=== PATIENT | male | born 1950 | race Caucasian/White ===

== ENCOUNTER → 2017-08-22 | Outpatient (CLI) | payer MEDICARE ==
[~2017-08-22] MED LIST: CHOL40003 PO; CLOP75TA14 PO; DOXA4TAB3 PO; EVOL140P SQ; ISOS60TA4 PO; LISI-617 PO; LISI2.5T2 PO; METF500T6 PO; METO-409 PO; PANT40TA25 PO; RANI300C PO; UBID50TA3 PO
== END | disposition home or self-care (01) ==
LOC: OIH 09:45
PROVIDERS: ATTEND Family Medicine
DX: M19.011 Primary osteoarthritis, right shoulder (principal); G89.29 Other chronic pain
CPT/HCPCS: 73030

== ENCOUNTER 2017-10-31 16:27 | Inpatient (IN) | payer MEDICARE ==
[~2017-10-31] VITALS: Ht 185.4 cm; Wt 111.5 kg
[~2017-10-31 16:27] MED LIST changes: -LISI2.5T2 PO
[2017-10-31 17:01] VITALS: BP 138/85
[2017-10-31] MEDS ORDERED: PHARMACY COMMUNICATION MISC SCH ×2 (17:30)
[2017-10-31] MEDS ORDERED: NITROGLYCERIN 50 MG/D5% WATER 250 BOT IV PRN (17:30)
[2017-10-31 17:45] LABS: HEMATOCRIT 42.5 % (42-54); MEAN CORPUSCULAR HEMOGLOBIN 30.8 pg (27.0-33.0); MEAN CORPUSCULAR HGB CONC 33.9 g/dL (32.0-36.0); MEAN CORPUSCULAR VOLUME 91.1 fL (79-99); PLATELET COUNT (AUTO) 205 K/uL (130-400); RED BLOOD CELL COUNT(AUTO) 4.67 MIL/uL (4.50-6.20); RED CELL DISTRIBUTION WIDTH 15.8 % (11.0-15.5); WHITE BLOOD COUNT (AUTO) 8.7 K/uL (4.8-10.8)
[2017-10-31 18:00] LABS: INR 0.96 (0.85-1.15); PARTIAL THROMBOPLASTIN TIME 24.6 SEC (26.3-35.5); PROTHROMBIN TIME 10.1 SEC (9.6-11.6)
[2017-10-31 18:11] LABS: ALANINE AMINOTRANSFERASE 31 U/L (12-78); ALBUMIN 3.2 g/dL (3.5-5.0); ASPARTATE AMINOTRANSFERASE 22 U/L (10-37); BILIRUBIN,TOTAL 0.4 mg/dL (0.2-1.0); CARBON DIOXIDE 30 mmol/L (21-32); CHLORIDE 104 mmol/L (101-111); CREATINE KINASE MB 1.9 ng/mL (0.5-3.6); CREATINE KINASE, TOTAL 81 U/L (21-232); GLOMERULAR FILTR. RATE CALC 79 mL/min (>60); GLUCOSE,RANDOM 131 mg/dL (70-105); MYOGLOBIN 73 ng/mL (10-92); POTASSIUM 4.3 mmol/L (3.5-5.1); SODIUM SERUM 138 mmol/L (136-145); TOTAL PROTEIN, SERUM 6.2 g/dL (6.0-8.3); TROPONIN I < 0.04 ng/mL (0.00-0.06); UREA NITROGEN, BLOOD 18 mg/dL (7-18)
[2017-10-31] MEDS ORDERED: LISI2.5T2 PO (18:22)
[2017-10-31 19:32] VITALS: BP 145/78
[2017-10-31] MEDS ORDERED: RANITIDINE 300MG PO SCH (21:00)
[2017-11-01] VITALS (9 sets, daily range): BP systolic 136–180; BP diastolic 74–95
[2017-11-01] MEDS ORDERED: HYDRALAZINE HCL 20 MG/ML VIAL ONE (00:37)
[2017-11-01] MEDS ORDERED: ACETAMINOPHEN 325 MG TAB PO PRN (00:45)
[2017-11-01] MEDS ORDERED: LACTULOSE 20 GM/30 ML UDCUP PO PRN (00:45)
[2017-11-01] MEDS ORDERED: DEXTROSE 50%-WATER 50 ML DISP.SYRIN IV PRN ×2 (00:45→08:30)
[2017-11-01] MEDS ORDERED: HYDRALAZINE HCL 20 MG/ML VIAL IV PRN (00:45)
[2017-11-01] MEDS ORDERED: LIDOCAINE HCL-MPF 1% 2ML VIAL IVP PRN (00:45)
[2017-11-01] MEDS ORDERED: GLUCAGON 1MG KIT 1 MG ML IM PRN ×2 (00:45→08:30)
[2017-11-01] MEDS ORDERED: POTASSIUM CHLORIDE 10% ELIXIR 20 MEQ/15 ML UDCUP PO PRN (00:45)
[2017-11-01] MEDS ORDERED: POTASSIUM CHLORIDE 20 MEQ ERTAB PO PRN (00:45)
[2017-11-01] MEDS ORDERED: POTASSIUM CHLORIDE 20MEQ/100ML 100 ML IV PRN (00:45)
[2017-11-01 03:26] LABS: HEMATOCRIT 43.8 % (42-54); MEAN CORPUSCULAR HEMOGLOBIN 31.4 pg (27.0-33.0); MEAN CORPUSCULAR HGB CONC 34.7 g/dL (32.0-36.0); MEAN CORPUSCULAR VOLUME 90.4 fL (79-99); PLATELET COUNT (AUTO) 204 K/uL (130-400); RED BLOOD CELL COUNT(AUTO) 4.84 MIL/uL (4.50-6.20); RED CELL DISTRIBUTION WIDTH 15.9 % (11.0-15.5); WHITE BLOOD COUNT (AUTO) 7.4 K/uL (4.8-10.8)
[2017-11-01 03:52] LABS: CARBON DIOXIDE 30 mmol/L (21-32); CHLORIDE 106 mmol/L (101-111); CREATINE KINASE MB 1.7 ng/mL (0.5-3.6); CREATINE KINASE, TOTAL 67 U/L (21-232); GLOMERULAR FILTR. RATE CALC 79 mL/min (>60); GLUCOSE,RANDOM 114 mg/dL (70-105); MYOGLOBIN 66 ng/mL (10-92); POTASSIUM 4.3 mmol/L (3.5-5.1); SODIUM SERUM 140 mmol/L (136-145); TROPONIN I < 0.04 ng/mL (0.00-0.06); UREA NITROGEN, BLOOD 12 mg/dL (7-18)
[2017-11-01] MEDS ORDERED: ISOVUE-370 50ML VIAL IV ONE (07:13)
[2017-11-01] MEDS ORDERED: HEPARIN SODIUM 1000UNIT/ML 10ML VIAL ONE (07:13)
[2017-11-01] MEDS ORDERED: NITROGLYCERIN 5 MG/ML 10 ML VIAL IV ONE (07:13)
[2017-11-01] MEDS ORDERED: LIDOCAINE HCL 2% 20ML ONE (07:14)
[2017-11-01] MEDS ORDERED: BIVALIRUDIN 250 MG/VIAL IV ONE (07:17)
[2017-11-01] MEDS ORDERED: IOPAMIDOL-370 100 ML VIAL IV ONE (07:17)
[2017-11-01] MEDS: INSULIN HUMULIN R 100 UNIT/ML 3ML SQ SCH ×2 (07:30→11:30)
[2017-11-01] MEDS ORDERED: MORPHINE SULFATE 4 MG/1ML SYG ONE ×2 (07:58→08:19)
[2017-11-01] MEDS ORDERED: LABETALOL HCL 5 MG/ML 20ML VIAL IV ONE (08:18)
[2017-11-01] MEDS ORDERED: SODIUM CHLORIDE 0.9% 1000ML 1,000 ML IV SCH (08:29)
[2017-11-01] MEDS ORDERED: FAMOTIDINE 20MG TAB 20 MG TAB PO SCH ×2 (09:00)
[2017-11-01] MEDS ORDERED: DOXAZOSIN MESYLATE 2 MG TABLET PO SCH (09:00)
[2017-11-01] MEDS ORDERED: METOPROLOL TARTRATE 50 MG TAB PO SCH (09:00)
[2017-11-01] MEDS ORDERED: LISINOPRIL 5 MG TABLET PO SCH (09:00)
[2017-11-01] MEDS ORDERED: METOPROLOL 100 MG PO SCH (09:00)
[2017-11-01] MEDS ORDERED: CLOPIDOGREL BISULFATE 75 MG TAB PO SCH (09:00)
[2017-11-01] MEDS ORDERED: PHARMACY COMMUNICATION MISC SCH (10:30)
== END 2017-11-01 14:20 | disposition short-term general hospital (02) | DRG 287 ==
LOC: EDH 16:27 → EDHIP 16:57 → 2AH 16:59
PROVIDERS: ADMIT Family Medicine; ATTEND Family Medicine
PROC: 4A023N7 Measurement of Cardiac Sampling and Pressure, Left Heart, Percutaneous Approach (ICD-10-PCS; principal; 2017-11-01)
PROC: B2111ZZ Fluoroscopy of Multiple Coronary Arteries using Low Osmolar Contrast (ICD-10-PCS; 2017-11-01)
PROC: B2151ZZ Fluoroscopy of Left Heart using Low Osmolar Contrast (ICD-10-PCS; 2017-11-01)
PROC: B2181ZZ Fluoroscopy of Left Internal Mammary Bypass Graft using Low Osmolar Contrast (ICD-10-PCS; 2017-11-01)
PROC: B4181ZZ Fluoroscopy of Bilateral Renal Arteries using Low Osmolar Contrast (ICD-10-PCS; 2017-11-01)
DX: T82.855A Stenosis of coronary artery stent, initial encounter (principal); T82.858A Stenosis of other vascular prosthetic devices, implants and grafts, initial encounter; I48.91 Unspecified atrial fibrillation; I25.110 Atherosclerotic heart disease of native coronary artery with unstable angina pectoris; I10 Essential (primary) hypertension; E11.9 Type 2 diabetes mellitus without complications; K21.9 Gastro-esophageal reflux disease without esophagitis; Y83.8 Other surgical procedures as the cause of abnormal reaction of the patient, or of later complication, without mention of misadventure at the time of the procedure; G47.33 Obstructive sleep apnea (adult) (pediatric); I25.2 Old myocardial infarction; Z95.5 Presence of coronary angioplasty implant and graft; Z88.8 Allergy status to other drugs, medicaments and biological substances; Z86.711 Personal history of pulmonary embolism; Y92.89 Other specified places as the place of occurrence of the external cause
CPT/HCPCS: 36252; 36415; 71045; 80048; 80053; 82550; 82553; 83874; 84484; 85027; 85610; 85730; 93005; 93459; C1760; C1894; J0360; J0583; J1644; J2270; J3490; J7030; Q9967

== ENCOUNTER 2017-12-28 11:25 | Emergency (ER) | payer MEDICARE ==
[~2017-12-28 11:25] MED LIST changes: -ISOS60TA4 PO; -LISI-617 PO; +LISI2.5T2 PO; -PANT40TA25 PO
[2017-12-28 11:57] LABS: BASOPHILS % (AUTO) 0.5 % (0.0-5.0); EOSINOPHILS % (AUTO) 1.4 % (0.0-8.0); HEMATOCRIT 45.6 % (42-54); LYMPHOCYTES % (AUTO) 17.8 % (21.0-51.0); MEAN CORPUSCULAR HEMOGLOBIN 31.3 pg (27.0-33.0); MEAN CORPUSCULAR VOLUME 92.2 fL (79-99); MONOCYTES % (AUTO) 9.2 % (3.0-13.0); NEUTROPHILS % (AUTO) 71.1 % (40.0-77.0); PLATELET COUNT (AUTO) 218 K/uL (130-400); RED BLOOD CELL COUNT(AUTO) 4.94 MIL/uL (4.50-6.20); RED CELL DISTRIBUTION WIDTH 14.5 % (11.0-15.5); WHITE BLOOD COUNT (AUTO) 7.2 K/uL (4.8-10.8)
[2017-12-28 12:08] LABS: POTASSIUM 4.2 mmol/L (3.5-5.1)
[2017-12-28 12:10] LABS: INR 0.97 (0.85-1.15); PARTIAL THROMBOPLASTIN TIME 23.3 SEC (26.3-35.5); PROTHROMBIN TIME 10.2 SEC (9.6-11.6)
[2017-12-28 12:22] LABS: ALBUMIN 3.7 g/dL (3.5-5.0); BILIRUBIN,TOTAL 0.7 mg/dL (0.2-1.0); CREATINE KINASE MB 1.5 ng/mL (0.5-3.6); TOTAL PROTEIN, SERUM 6.9 g/dL (6.0-8.3)
== END 2017-12-28 16:13 | disposition home or self-care (01) ==
LOC: EDH 11:25
DX: R42 Dizziness and giddiness (principal); R94.31 Abnormal electrocardiogram [ECG] [EKG]; E11.9 Type 2 diabetes mellitus without complications; I10 Essential (primary) hypertension; I25.10 Atherosclerotic heart disease of native coronary artery without angina pectoris; I25.2 Old myocardial infarction; R79.1 Abnormal coagulation profile; Z86.711 Personal history of pulmonary embolism; Z98.890 Other specified postprocedural states; Z79.82 Long term (current) use of aspirin; Z79.84 Long term (current) use of oral hypoglycemic drugs; Z79.899 Other long term (current) drug therapy; Z88.8 Allergy status to other drugs, medicaments and biological substances
CPT/HCPCS: 36415; 71045; 80053; 82550; 82553; 83874; 84484; 85025; 85610; 85730; 93005; 94761

== ENCOUNTER 2018-03-18 07:27 | Day surgery (SDC) | payer MEDICARE ==
[~2018-03-18] VITALS: Ht 185.4 cm; Wt 110.0 kg
[~2018-03-18 07:27] MED LIST changes: +AEC81 PO; +FINA5TAB41 PO; +HYDR12.530 PO; +METF-444 PO; -METF500T6 PO; -METO-409 PO; +METO50TA18 PO; +SODIUM CHLORIDE 0.9% 1000ML 1,000 ML IV ONE
[2018-03-18 08:14] VITALS: BP 113/59
[2018-03-18] MEDS ORDERED: PROPOFOL 10 MG/ML 20ML VIAL IV ONE (09:33)
[2018-03-18 09:44] VITALS: BP 96/46
[2018-03-18 09:48] VITALS: BP 97/46
[2018-03-18 09:53] VITALS: BP 116/62
[2018-03-18 09:57] VITALS: BP 110/72
== END 2018-03-18 11:02 | disposition home or self-care (01) ==
LOC: DAH 07:27 → ENDO 07:27
PROVIDERS: ATTEND Internal Medicine Gastroenterology
DX: K29.50 Unspecified chronic gastritis without bleeding (principal); K21.9 Gastro-esophageal reflux disease without esophagitis; K31.89 Other diseases of stomach and duodenum; E11.9 Type 2 diabetes mellitus without complications; I25.10 Atherosclerotic heart disease of native coronary artery without angina pectoris; E78.5 Hyperlipidemia, unspecified; K64.9 Unspecified hemorrhoids; I11.0 Hypertensive heart disease with heart failure; I50.9 Heart failure, unspecified; I25.2 Old myocardial infarction; Z95.5 Presence of coronary angioplasty implant and graft; Z79.82 Long term (current) use of aspirin; Z79.899 Other long term (current) drug therapy; Z88.8 Allergy status to other drugs, medicaments and biological substances; Z95.1 Presence of aortocoronary bypass graft
CPT/HCPCS: 43239; 82948; 88305; 88342; 93005; A4606; J2704; J7030

== ENCOUNTER → 2018-05-19 | Outpatient (CLI) | payer MEDICARE ==
[~2018-05-19] VITALS: Ht 182.9 cm; Wt 108.9 kg
[~2018-05-19] MED LIST changes: +NITR0.4T50 SL; +PANT40TA25 PO; +REGADENOSON 0.4 MG/5 ML PF SYG IVP SCH; -SODIUM CHLORIDE 0.9% 1000ML 1,000 ML IV ONE
== END | disposition home or self-care (01) ==
LOC: SHCH 09:15
PROVIDERS: ATTEND Internal Medicine Cardiovascular Disease
DX: I25.709 Atherosclerosis of coronary artery bypass graft(s), unspecified, with unspecified angina pectoris (principal); I25.2 Old myocardial infarction
CPT/HCPCS: 78452; 93017; 96374; A9505; J2785

== ENCOUNTER 2018-05-21 12:47 | Inpatient (IN) | payer MEDICARE ==
[~2018-05-21] VITALS: Ht 147.3 cm; Wt 47.8 kg
[~2018-05-21 12:47] MED LIST changes: -NITR0.4T50 SL; -PANT40TA25 PO; -REGADENOSON 0.4 MG/5 ML PF SYG IVP SCH
[2018-05-21] MEDS ORDERED: GLUCAGON 1MG KIT 1 MG ML IM PRN (13:15)
[2018-05-21] MEDS ORDERED: POTASSIUM CHLORIDE 20 MEQ ERTAB PO PRN (13:15)
[2018-05-21] MEDS ORDERED: POTASSIUM CHLORIDE 20MEQ/100ML 100 ML IV PRN (13:15)
[2018-05-21] MEDS ORDERED: POTASSIUM CHLORIDE 10% ELIXIR 20 MEQ/15 ML UDCUP PO PRN (13:15)
[2018-05-21] MEDS ORDERED: SODIUM CHLORIDE 0.9% 10 ML VIAL IVP PRN (13:15)
[2018-05-21] MEDS ORDERED: DEXTROSE 50%-WATER 50 ML DISP.SYRIN IV PRN (13:15)
[2018-05-21] MEDS ORDERED: LIDOCAINE HCL-MPF 1% 2ML VIAL IJ PRN (13:15)
[2018-05-21 13:25] VITALS: BP 124/68
[2018-05-21 14:08] LABS: ALBUMIN 3.3 g/dL (3.5-5.0); BILIRUBIN,TOTAL 0.6 mg/dL (0.2-1.0); CREATININE 1.1 mg/dL (0.5-1.5); POTASSIUM 4.5 mmol/L (3.5-5.1); TOTAL PROTEIN, SERUM 6.4 g/dL (6.0-8.3)
[2018-05-21 14:23] LABS: INR 0.97 (0.85-1.15); PARTIAL THROMBOPLASTIN TIME 25.7 SEC (26.3-35.5); PROTHROMBIN TIME 10.2 SEC (9.6-11.6)
[2018-05-21 14:30] LABS: EOSINOPHILS % (MANUAL) 5 % (1-6); LYMPHOCYTES % (MANUAL) 17 % (22-44); MAN.DIFF COMMENT-IMPRESSION MANUAL DIFFERENTIAL; MONOCYTES % (MANUAL) 5 % (2-9); PLATELET MORPHOLOGY COMMENT ADEQUATE; REACTIVE LYMPHOCYTES 3 % (0-0); SEGMENTED NEUTROPHILS % 70 % (40-70)
[2018-05-21 14:31] LABS: HEMATOCRIT 43.9 % (42-54); MEAN CORPUSCULAR HGB CONC 32.9 g/dL (32.0-36.0); NUCLEATED RED BLOOD CELLS 0.1 % (0.0-0.19); PLATELET COUNT (AUTO) 179 K/uL (130-400); RED BLOOD CELL COUNT(AUTO) 4.83 MIL/uL (4.50-6.20); RED CELL DISTRIBUTION WIDTH 13.7 % (11.0-15.5); WHITE BLOOD COUNT (AUTO) 7.1 K/uL (4.8-10.8)
[2018-05-21] MEDS ORDERED: NITROGLYCERIN 50 MG/D5% WATER 1 BOT IV PRN (15:00)
[2018-05-21] MEDS ORDERED: NITR0.4T50 SL (15:25)
[2018-05-21] MEDS ORDERED: PANT40TA25 PO (15:25)
[2018-05-21 16:03] VITALS: BP 133/77
[2018-05-21] MEDS: INSULIN R PO SS1 SQ SCH ×3 (16:30→20:40)
[2018-05-21 17:54] LABS: APPEARANCE,URINE Clear (CLEAR); BILIRUBIN,URINE Negative (NEGATIVE); COLOR,URINE Yellow (YELLOW); GLUCOSE, URINE (UA) Negative (NEGATIVE); KETONES,URINE Negative (NEGATIVE); LEUKOCYTE ESTERASE ,URINE Negative (NEGATIVE); NITRATE,URINE Negative (NEGATIVE); OCCULT BLOOD,URINE Negative (NEGATIVE); PH,URINE 5.5 (5.0-8.0); PROTEIN,URINE Negative (NEGATIVE); UROBILINOGEN,URINE 0.2 mg/dL (0.2-1.0)
[2018-05-21] MEDS ORDERED: ACETAMINOPHEN 325 MG TAB ONE (19:08)
[2018-05-21] MEDS: ACETAMINOPHEN 325 MG TAB PO PRN (19:10)
[2018-05-21 19:59] VITALS: BP 136/86
[2018-05-21] MEDS: METOPROLOL TARTRATE 50 MG TAB PO SCH ×2 (20:49→20:54)
[2018-05-22] VITALS (13 sets, daily range): BP systolic 91–155; BP diastolic 22–89
[2018-05-22] MEDS ORDERED: LIDOCAINE HCL 2% 20ML ONE (07:14)
[2018-05-22] MEDS ORDERED: IOHEXOL-350 50ML VIAL IV ONE (07:14)
[2018-05-22] MEDS ORDERED: NITROGLYCERIN 5 MG/ML 10 ML VIAL IV ONE (07:14)
[2018-05-22] MEDS ORDERED: IOHEXOL 350 MG/ML 100ML INFUS..BTL IV ONE (07:14)
[2018-05-22] MEDS ORDERED: BIVALIRUDIN 250 MG/VIAL IV ONE (07:21)
[2018-05-22] MEDS ORDERED: MIDAZOLAM HCL 1 MG/ML 2ML VIAL ONE (07:44)
[2018-05-22] MEDS ORDERED: FENTANYL CITRATE PF 50 MCG/1 ML 2ML VIAL ONE (07:44)
[2018-05-22] MEDS ORDERED: SODIUM CHLORIDE 0.9% 1000ML 1,000 ML IV SCH (08:17)
[2018-05-22] MEDS ORDERED: NITROGLYCERIN 50 MG/D5% WATER 250 BOT IV SCH (08:17)
[2018-05-22] MEDS ORDERED: DEXTROSE 50%-WATER 50 ML DISP.SYRIN IV PRN (08:30)
[2018-05-22] MEDS ORDERED: GLUCAGON 1MG KIT 1 MG ML IM PRN (08:30)
[2018-05-22] MEDS ORDERED: COENZYME Q10 PO SCH (09:00)
[2018-05-22] MEDS ORDERED: REPATHA 140 MG SQ SCH (09:00)
[2018-05-22] MEDS: CO Q PO SCH (09:00)
[2018-05-22] MEDS ORDERED: ONDANSETRON HCL 4 MG/2 ML VIAL IVP PRN (11:00)
[2018-05-22] MEDS: CLOPIDOGREL BISULFATE 75 MG TAB PO SCH (11:02)
[2018-05-22] MEDS: ASPIRIN 81MG TAB.CHEW PO SCH (11:02)
[2018-05-22] MEDS: LISINOPRIL 10 MG TABLET PO SCH (11:02)
[2018-05-22] MEDS: PANTOPRAZOLE SODIUM 40 MG TABLET.DR PO SCH (11:03)
[2018-05-22] MEDS: METOPROLOL TARTRATE 50 MG TAB PO SCH ×2 (11:03→20:35)
[2018-05-22] MEDS: DOXAZOSIN MESYLATE 2 MG TABLET PO SCH (11:03)
[2018-05-22] MEDS: ACETAMINOPHEN 325 MG TAB PO PRN (11:05)
[2018-05-22] MEDS: INSULIN R PO SS1 SQ SCH ×3 (11:30→20:28)
[2018-05-23] VITALS (14 sets, daily range): BP systolic 118–157; BP diastolic 67–88
[2018-05-23] MEDS: ACETAMINOPHEN 325 MG TAB PO PRN ×2 (03:03→12:56)
[2018-05-23 04:02] LABS: HEMATOCRIT 41.6 % (42-54); MEAN CORPUSCULAR HEMOGLOBIN 29.7 pg (27.0-33.0); MEAN CORPUSCULAR HGB CONC 32.4 g/dL (32.0-36.0); MEAN CORPUSCULAR VOLUME 91.5 fL (79-99); NUCLEATED RED BLOOD CELLS 0.1 % (0.0-0.19); PLATELET COUNT (AUTO) 170 K/uL (130-400); RED BLOOD CELL COUNT(AUTO) 4.54 MIL/uL (4.50-6.20); RED CELL DISTRIBUTION WIDTH 13.8 % (11.0-15.5); WHITE BLOOD COUNT (AUTO) 8.6 K/uL (4.8-10.8)
[2018-05-23 04:06] LABS: POTASSIUM 4.1 mmol/L (3.5-5.1)
[2018-05-23] MEDS: CO Q PO SCH (09:00)
[2018-05-23] MEDS: CLOPIDOGREL BISULFATE 75 MG TAB PO SCH (09:02)
[2018-05-23] MEDS: METOPROLOL TARTRATE 50 MG TAB PO SCH ×2 (09:03→20:53)
[2018-05-23] MEDS: LISINOPRIL 10 MG TABLET PO SCH (09:03)
[2018-05-23] MEDS: ASPIRIN 81MG TAB.CHEW PO SCH (09:03)
[2018-05-23] MEDS: DOXAZOSIN MESYLATE 2 MG TABLET PO SCH (09:03)
[2018-05-23] MEDS: PANTOPRAZOLE SODIUM 40 MG TABLET.DR PO SCH (09:03)
[2018-05-23] MEDS: INSULIN R PO SS1 SQ SCH ×2 (11:30→21:00)
[2018-05-23] MEDS ORDERED: BIVALIRUDIN 250 MG/VIAL IV ONE (16:38)
[2018-05-23] MEDS ORDERED: NITROGLYCERIN 5 MG/ML 10 ML VIAL IV ONE (16:38)
[2018-05-23] MEDS ORDERED: LIDOCAINE HCL 2% 20ML ONE ×2 (16:38→17:06)
[2018-05-23] MEDS ORDERED: IOHEXOL 350 MG/ML 100ML INFUS..BTL IV ONE (16:38)
[2018-05-23] MEDS ORDERED: FENTANYL CITRATE PF 50 MCG/1 ML 2ML VIAL ONE (16:58)
[2018-05-23] MEDS ORDERED: MIDAZOLAM HCL 1 MG/ML 2ML VIAL ONE (16:58)
[2018-05-23] MEDS ORDERED: CLOPIDOGREL BISULFATE 300 MG TAB ONE (17:33)
[2018-05-23] MEDS ORDERED: NITROGLYCERIN 50 MG/D5% WATER 1 BOT IV PRN (17:45)
[2018-05-23] MEDS: SODIUM CHLORIDE 0.9% 1000ML 1,000 ML IV SCH ×3 (17:45→20:52)
[2018-05-24 03:25] VITALS: BP_SYST 144; BP_SYST 146; BP_DIAS 76; BP_DIAS 87
[2018-05-24 04:20] LABS: POTASSIUM 4.3 mmol/L (3.5-5.1)
[2018-05-24 04:26] LABS: MEAN CORPUSCULAR HGB CONC 33.5 g/dL (32.0-36.0); MEAN CORPUSCULAR VOLUME 92.4 fL (79-99); NUCLEATED RED BLOOD CELLS 0.1 % (0.0-0.19); PLATELET COUNT (AUTO) 184 K/uL (130-400); RED BLOOD CELL COUNT(AUTO) 4.54 MIL/uL (4.50-6.20); RED CELL DISTRIBUTION WIDTH 13.8 % (11.0-15.5); WHITE BLOOD COUNT (AUTO) 7.5 K/uL (4.8-10.8)
[2018-05-24] MEDS: INSULIN R PO SS1 SQ SCH ×2 (06:01→11:30)
[2018-05-24] MEDS: PANTOPRAZOLE SODIUM 40 MG TABLET.DR PO SCH (06:03)
[2018-05-24 07:39] VITALS: BP 140/89
[2018-05-24] MEDS: METOPROLOL TARTRATE 50 MG TAB PO SCH (08:43)
[2018-05-24] MEDS: CO Q PO SCH (08:44)
[2018-05-24] MEDS: LISINOPRIL 10 MG TABLET PO SCH (08:44)
[2018-05-24] MEDS: DOXAZOSIN MESYLATE 2 MG TABLET PO SCH (08:44)
[2018-05-24] MEDS ORDERED: ASPIRIN 81MG TAB.CHEW PO SCH (09:00)
[2018-05-24] MEDS ORDERED: CLOPIDOGREL BISULFATE 75 MG TAB PO SCH (09:00)
[2018-05-24 11:40] VITALS: BP 138/80
[2018-05-24 14:45] VITALS: BP 137/83
== END 2018-05-24 12:55 | disposition home or self-care (01) | DRG 246 ==
LOC: EDH 12:47 → 2DH 12:48
PROVIDERS: ADMIT Internal Medicine; ATTEND Internal Medicine
PROC: 4A023N7 Measurement of Cardiac Sampling and Pressure, Left Heart, Percutaneous Approach (ICD-10-PCS; principal; 2018-05-22)
PROC: 027034Z Dilation of Coronary Artery, One Artery with Drug-eluting Intraluminal Device, Percutaneous Approach (ICD-10-PCS; 2018-05-22)
PROC: B2151ZZ Fluoroscopy of Left Heart using Low Osmolar Contrast (ICD-10-PCS; 2018-05-22)
PROC: B2111ZZ Fluoroscopy of Multiple Coronary Arteries using Low Osmolar Contrast (ICD-10-PCS; 2018-05-22)
PROC: B41G1ZZ Fluoroscopy of Left Lower Extremity Arteries using Low Osmolar Contrast (ICD-10-PCS; 2018-05-22)
PROC: B41F1ZZ Fluoroscopy of Right Lower Extremity Arteries using Low Osmolar Contrast (ICD-10-PCS; 2018-05-22)
DX: T82.858A Stenosis of other vascular prosthetic devices, implants and grafts, initial encounter (principal); I50.31 Acute diastolic (congestive) heart failure; I25.110 Atherosclerotic heart disease of native coronary artery with unstable angina pectoris; I24.9 Acute ischemic heart disease, unspecified; E11.69 Type 2 diabetes mellitus with other specified complication; I48.91 Unspecified atrial fibrillation; E78.2 Mixed hyperlipidemia; I10 Essential (primary) hypertension; Z95.1 Presence of aortocoronary bypass graft; Z82.3 Family history of stroke; Z82.49 Family history of ischemic heart disease and other diseases of the circulatory system; Z83.3 Family history of diabetes mellitus; Z80.8 Family history of malignant neoplasm of other organs or systems; Z83.6 Family history of other diseases of the respiratory system
CPT/HCPCS: 36415; 71045; 78452; 80048; 80053; 80061; 81003; 83036; 85025; 85027; 85610; 85730; 93005; 93017; 93459; 96374; 99156; 99157; A9505; C1760; C1769; C1894; C9604; J0583; J1644; J2250; J2405; J2785; J3010; J3490; J7030; Q9967

== ENCOUNTER 2018-08-06 00:22 | Emergency (ER) | payer MEDICARE ==
[~2018-08-06 00:22] MED LIST changes: +CHOL40002 PO; -CHOL40003 PO; -HYDR12.530 PO; +NITR0.4T50 SL; +PANT40TA25 PO; -RANI300C PO
[2018-08-06] MEDS ORDERED: IPRATROPIUM/ALBUTEROL SULFATE 3 ML SOLUTION IH ONE (01:27)
[2018-08-06] MEDS ORDERED: DEXAMETHASONE SOD PHOSPHATE 10MG/ML 1ML VIAL ONE (01:28)
[2018-08-06] MEDS ORDERED: SODIUM CHLORIDE 0.9% 500ML 500 ML IV ONE (01:28)
[2018-08-06 01:45] LABS: POTASSIUM 4.4 mmol/L (3.5-5.1)
[2018-08-06 01:47] LABS: BASOPHILS % (AUTO) 0.4 % (0.0-5.0); EOSINOPHILS % (AUTO) 3.3 % (0.0-8.0); HEMATOCRIT 41.7 % (42-54); LYMPHOCYTES % (AUTO) 14.8 % (21.0-51.0); MEAN CORPUSCULAR HEMOGLOBIN 29.2 pg (27.0-33.0); MEAN CORPUSCULAR HGB CONC 33.4 g/dL (32.0-36.0); MEAN CORPUSCULAR VOLUME 87.3 fL (79-99); MONOCYTES % (AUTO) 8.9 % (3.0-13.0); NEUTROPHILS % (AUTO) 72.6 % (40.0-77.0); NUCLEATED RED BLOOD CELLS 0.1 % (0.0-0.19); PLATELET COUNT (AUTO) 199 K/uL (130-400); RED BLOOD CELL COUNT(AUTO) 4.78 MIL/uL (4.50-6.20); RED CELL DISTRIBUTION WIDTH 13.6 % (11.0-15.5); WHITE BLOOD COUNT (AUTO) 9.7 K/uL (4.8-10.8)
[2018-08-06 01:59] LABS: ALBUMIN 3.3 g/dL (3.5-5.0); BILIRUBIN,DIRECT 0.1 mg/dL (0.0-0.3); BILIRUBIN,TOTAL 0.5 mg/dL (0.2-1.0); TOTAL PROTEIN, SERUM 6.6 g/dL (6.0-8.3)
[2018-08-06 02:00] LABS: B-TYPE NATRIURETIC PEPTIDE 82 pg/mL (0-100)
== END 2018-08-06 04:23 | disposition home or self-care (01) ==
LOC: EDH 00:22
DX: J20.9 Acute bronchitis, unspecified (principal); I25.810 Atherosclerosis of coronary artery bypass graft(s) without angina pectoris; E11.9 Type 2 diabetes mellitus without complications; I10 Essential (primary) hypertension; I25.2 Old myocardial infarction; Z88.8 Allergy status to other drugs, medicaments and biological substances
CPT/HCPCS: 36415; 71045; 80048; 80076; 82550; 83880; 84484; 85025; 87804 ×2; 93005; 94640; 96374; 99284; J1100; J7040

== ENCOUNTER 2018-08-08 11:30 | Observation (INO) | payer MEDICARE ==
[~2018-08-08] VITALS: Ht 185.4 cm; Wt 112.9 kg
[2018-08-08] MEDS ORDERED: IPRATROPIUM/ALBUTEROL SULFATE 3 ML SOLUTION IH ONE ×3 (12:25→18:50)
[2018-08-08] MEDS ORDERED: ACETAMINOPHEN 325 MG TAB ONE (12:39)
[2018-08-08 12:41] LABS: BASOPHILS % (AUTO) 0.3 % (0.0-5.0); EOSINOPHILS % (AUTO) 3.2 % (0.0-8.0); HEMATOCRIT 44.2 % (42-54); LYMPHOCYTES % (AUTO) 9.2 % (21.0-51.0); MEAN CORPUSCULAR HEMOGLOBIN 29.2 pg (27.0-33.0); MEAN CORPUSCULAR HGB CONC 33.1 g/dL (32.0-36.0); MEAN CORPUSCULAR VOLUME 88.2 fL (79-99); NEUTROPHILS % (AUTO) 80.3 % (40.0-77.0); PLATELET COUNT (AUTO) 217 K/uL (130-400); RED BLOOD CELL COUNT(AUTO) 5.01 MIL/uL (4.50-6.20); RED CELL DISTRIBUTION WIDTH 13.8 % (11.0-15.5); WHITE BLOOD COUNT (AUTO) 13.8 K/uL (4.8-10.8)
[2018-08-08 12:55] LABS: CREATININE 1.1 mg/dL (0.5-1.5); POTASSIUM 4.6 mmol/L (3.5-5.1)
[2018-08-08 13:01] LABS: ALBUMIN 3.5 g/dL (3.5-5.0); BILIRUBIN,TOTAL 1.1 mg/dL (0.2-1.0); TOTAL PROTEIN, SERUM 6.9 g/dL (6.0-8.3)
[2018-08-08] MEDS ORDERED: SODIUM CHLORIDE 0.9% 1000ML 1,000 ML IV ONE (15:10)
[2018-08-08] MEDS ORDERED: LEVOFLOXACIN 750 MG/D5W 150 ML 150 ML ONE (15:11)
[2018-08-08] MEDS ORDERED: CEFTRIAXONE SODIUM 1 GM ONE (16:12)
[2018-08-08] MEDS ORDERED: BENZONATATE 100 MG CAPSULE PO PRN (17:00)
[2018-08-08] MEDS: LEVOFLOXACIN 750 MG/D5W 150 ML 150 ML IV SCH (17:00)
[2018-08-08] MEDS: IPRATROPIUM/ALBUTEROL SULFATE 3 ML SOLUTION IH SCH (18:47)
[2018-08-08 21:06] LABS: APPEARANCE,URINE Clear (CLEAR); BILIRUBIN,URINE Negative (NEGATIVE); COLOR,URINE Yellow (YELLOW); GLUCOSE, URINE (UA) Negative (NEGATIVE); KETONES,URINE Negative (NEGATIVE); LEUKOCYTE ESTERASE ,URINE Negative (NEGATIVE); NITRATE,URINE Negative (NEGATIVE); OCCULT BLOOD,URINE Negative (NEGATIVE); PH,URINE 6.5 (5.0-8.0); PROTEIN,URINE Negative (NEGATIVE); UROBILINOGEN,URINE 0.2 mg/dL (0.2-1.0)
[2018-08-08 22:05] VITALS: BP 181/89
[2018-08-08] MEDS ORDERED: HYDRALAZINE HCL 20 MG/ML VIAL IV PRN (22:45)
[2018-08-08] MEDS ORDERED: METO50TA18 PO (22:49)
[2018-08-08] MEDS ORDERED: LISI10TA7 PO (22:49)
[2018-08-08] MEDS ORDERED: NITROGLYCERIN 0.4 MG SL TAB SL SCH (23:00)
[2018-08-08] MEDS ORDERED: DOXAZOSIN MESYLATE 2 MG TABLET PO SCH (23:30)
[2018-08-08 23:39] VITALS: BP 176/81
[2018-08-09] MEDS: IPRATROPIUM/ALBUTEROL SULFATE 3 ML SOLUTION IH SCH ×3 (00:21→11:23)
[2018-08-09 04:00] VITALS: BP 169/81
[2018-08-09] MEDS ORDERED: SODIUM CHLORIDE 3% FOR INHALATION 4 ML/AMP VIAL.NEB IH ONE (06:19)
[2018-08-09 08:00] VITALS: BP 163/83
[2018-08-09] MEDS ORDERED: METFORMIN HCL 500 MG TABLET PO SCH (08:00)
[2018-08-09] MEDS ORDERED: CHOLECALCIFEROL 4000 UNIT PO SCH (09:00)
[2018-08-09] MEDS ORDERED: CLOPIDOGREL BISULFATE 75 MG TAB PO SCH (09:00)
[2018-08-09] MEDS ORDERED: UBIDECARENONE 400 MG PO SCH (09:00)
[2018-08-09] MEDS ORDERED: ASPIRIN 81 MG EC TAB PO SCH (09:00)
[2018-08-09] MEDS ORDERED: CEFTRIAXONE SODIUM 1 GM IVP SCH (09:00)
[2018-08-09] MEDS ORDERED: METOPROLOL TARTRATE 50 MG TAB PO SCH ×2 (09:00→21:00)
[2018-08-09] MEDS ORDERED: PANTOPRAZOLE SODIUM 40 MG TABLET.DR PO SCH (09:00)
[2018-08-09] MEDS ORDERED: ENOXAPARIN SODIUM 40 MG/0.4 ML SYRINGE SQ SCH (09:00)
[2018-08-09 12:00] VITALS: BP 158/79
--- NOTE | 2018-08-09 15:59 | NUR ---
cm note met with patient and states resides athome with spouse, independent and active at home. no dme. no hh or provider services. dc plan is back to home. no dc needs. Addendum: 08/09/18 at 1601 by EVELIO KELSEY CM Amended: Links added.
[2018-08-09 16:00] VITALS: BP 131/89
[2018-08-09] MEDS: LEVOFLOXACIN 750 MG/D5W 150 ML 150 ML IV SCH (17:18)
--- NOTE | 2018-08-09 17:45 | NUR ---
cm note discussed pt admit status with md, states keep observation. poss dc home
[2018-08-09] MEDS ORDERED: LEVO500T2 PO (18:22)
[2018-08-09] MEDS ORDERED: ALBU8.5H8 IH (18:22)
--- NOTE | 2018-08-09 19:00 | NUR ---
DISCHARGE PATIENT GIVEN DISCHARGE INSTRUCTIONS VIA TEACH BACK. RX GIVEN FOR LEVAQUIN 500MG 1 TAB PO X 7 DAYS AND PROAIR INHALER. PATIENT TO FOLLOW UP WITH SHARON AND DR. PEARCE. 20G PIV TO LAC DISCONTINUED, TIP INTACT. PATIENT STABLE AT THIS TIME.
[2018-08-09] MEDS ORDERED: LISINOPRIL 10 MG TABLET PO SCH (21:00)
[2018-08-22] MEDS ORDERED: EVOLOCUMAB 140 MG SQ SCH (23:00)
== END 2018-08-09 19:11 | disposition home or self-care (01) ==
LOC: EDH 11:30 → EDHIP 15:51 → 4CH 21:56
PROVIDERS: ADMIT Internal Medicine Pulmonary Disease; ATTEND Internal Medicine Pulmonary Disease
DX: J18.9 Pneumonia, unspecified organism (principal); I10 Essential (primary) hypertension; I25.10 Atherosclerotic heart disease of native coronary artery without angina pectoris; E11.9 Type 2 diabetes mellitus without complications; Z86.711 Personal history of pulmonary embolism; Z87.891 Personal history of nicotine dependence; Z88.8 Allergy status to other drugs, medicaments and biological substances
CPT/HCPCS: 36415; 71046; 71250; 80053; 81003; 83605 ×2; 85025; 87040 ×2; 87071; 87205; 87804 ×2; 94640 ×6; 94664; 96365; 96375; 97116; 97161; 99284; A4218; G0378 ×27; G8978; G8979; G8980; G8981; G8982; G8983; J0696 ×2; J1956 ×2; J7030; J1650

== ENCOUNTER → 2019-02-27 | Outpatient (CLI) | payer MEDICARE ==
[~2019-02-27] MED LIST changes: +ALBU8.5H8 IH; -FINA5TAB41 PO; +LEVO500T2 PO; +LISI10TA7 PO; -LISI2.5T2 PO
== END | disposition home or self-care (01) ==
LOC: SHCH 08:44
PROVIDERS: ATTEND Internal Medicine Cardiovascular Disease
DX: I25.2 Old myocardial infarction (principal); R06.09 Other forms of dyspnea
CPT/HCPCS: 78481; A9512

== ENCOUNTER 2019-06-29 09:34 | Day surgery (SDC) | payer MEDICARE ==
[2019-06-23 11:20] VITALS: BP 146/84
[2019-06-23 11:39] LABS: BASOPHILS % (AUTO) 0.5 % (0.0-5.0); EOSINOPHILS % (AUTO) 2.2 % (0.0-8.0); HEMATOCRIT 47.1 % (42-54); LYMPHOCYTES % (AUTO) 24.7 % (21.0-51.0); MEAN CORPUSCULAR HEMOGLOBIN 29.1 pg (27.0-33.0); MEAN CORPUSCULAR HGB CONC 31.8 g/dL (32.0-36.0); MEAN CORPUSCULAR VOLUME 91.3 fL (79-99); MONOCYTES % (AUTO) 9.1 % (3.0-13.0); NEUTROPHILS % (AUTO) 62.6 % (40.0-77.0); PLATELET COUNT (AUTO) 218 K/uL (130-400); RED BLOOD CELL COUNT(AUTO) 5.16 MIL/uL (4.50-6.20); RED CELL DISTRIBUTION WIDTH 13.7 % (11.0-15.5); WHITE BLOOD COUNT (AUTO) 7.8 K/uL (4.8-10.8)
[2019-06-23 11:45] LABS: APPEARANCE,URINE Clear (CLEAR); BILIRUBIN,URINE Negative (NEGATIVE); COLOR,URINE Yellow (YELLOW); GLUCOSE, URINE (UA) >=1000 mg/dL (NEGATIVE); KETONES,URINE Negative (NEGATIVE); LEUKOCYTE ESTERASE ,URINE Trace (NEGATIVE); NITRATE,URINE Negative (NEGATIVE); OCCULT BLOOD,URINE Negative (NEGATIVE); PROTEIN,URINE Negative (NEGATIVE); UROBILINOGEN,URINE 0.2 mg/dL (0.2-1.0)
[2019-06-23 11:51] LABS: CREATININE 1.1 mg/dL (0.5-1.5); POTASSIUM 4.9 mmol/L (3.5-5.1)
[2019-06-23 11:53] LABS: INR 0.98 (0.85-1.15); PROTHROMBIN TIME 10.3 SEC (9.6-11.6)
[2019-06-23 12:34] LABS: BACTERIA,URINE Few /HPF (None Seen); RBC,URINE 0-1 /HPF (0-1); WBC,URINE 0-1 /HPF (0-1)
[2019-06-29] VITALS (9 sets, daily range): BP systolic 126–149; BP diastolic 70–84
[~2019-06-29] VITALS: Ht 185.4 cm; Wt 113.6 kg
[~2019-06-29 09:34] MED LIST changes: -ALBU8.5H8 IH; -CHOL40002 PO; +CHOL400C9 PO; +CO Q10 PO; +EMPA10TA PO; -EVOL140P SQ; +EVOL140P3 SQ; +FINA5TAB41 PO; -LEVO500T2 PO; +RANO500T5 PO; -UBID50TA3 PO
[2019-06-29] MEDS ORDERED: SODIUM CHLORIDE 0.9% 1000ML 1,000 ML IV ONE (09:53)
[2019-06-29] MEDS ORDERED: SODIUM BICARB 50MEQ 50ML VIAL ONE (10:56)
[2019-06-29] MEDS ORDERED: FENTANYL CITRATE PF 50 MCG/1 ML 2ML VIAL ONE (10:57)
[2019-06-29] MEDS ORDERED: IOHEXOL 350 MG/ML 100ML INFUS..BTL IV ONE ×2 (10:57→12:08)
[2019-06-29] MEDS ORDERED: NITROGLYCERIN 5 MG/ML 10 ML VIAL IV ONE (10:57)
[2019-06-29] MEDS ORDERED: MIDAZOLAM HCL 1 MG/ML 2ML VIAL ONE (10:57)
[2019-06-29] MEDS ORDERED: LIDOCAINE HCL 2% 20ML ONE (10:58)
[2019-06-29] MEDS ORDERED: NICARDIPINE HCL 25 MG/10 ML ML IV ONE (10:58)
[2019-06-29] MEDS ORDERED: BIVALIRUDIN 250 MG/VIAL IV ONE (11:38)
[2019-06-29] MEDS ORDERED: CLOPIDOGREL BISULFATE 300 MG TAB ONE (12:47)
[2019-06-29] MEDS ORDERED: HYDRALAZINE HCL 20 MG/ML VIAL ONE (13:02)
--- NOTE | 2019-06-29 14:00 | NUR ---
PT IS REFUSING TO GET HIS GLUCOSE CHECKED. I EXPLAINED AND MADE HIM AWARE, THE IMPORTANCE/RISK OF GLUCOSE BEING CHECKED, PT. STILL REFUSED. PT. STATES, HE DOESN'T CHECK HIS GLUCOSE AND IS NOT GOING CHECK HERE IN THE HOSPITAL. Addendum: 06/29/19 at 1453 by MARIO CONTI RN RN ALSO PRESENT WHEN PT REFUSED GLUCOSE CHECK WAS SKYLAR ARELLANO MA.
--- NOTE | 2019-06-29 14:53 | NUR ---
PER DR. JAY NO EKG POST [facility].
--- NOTE | 2019-06-29 14:56 | NUR ---
REPORT GIVEN TO FARIDA SHARPE RN AT BEDSIDE, PT V/S DAPHNEBEL, DRESSING DRY AND INTACT, DP PRESENT BILATERALLY, NO HEMATOMA, NO PAIN, NO BLEEDING.
--- NOTE | 2019-06-29 16:00 | NUR ---
ACTIVITY PT POSITIONED SEMI-SITTING IN BED. PT STABLE. NO COMPLAINTS MADE. CATH SITE RIGHT GROIN REMAINS SOFT, NO OOZING NO HEMATOMA NOTED, DRESSING DRY AND INTACT.
--- NOTE | 2019-06-29 16:15 | NUR ---
DISCHARGE PT DISCHARGED VIA WHEELCHAIR WITH . PT STABLE. NO COMPLAINTS MADE. CATH SITE RIGHT GROIN REMAINS SOFT, NO OOZING NO HEMATOMA NOTED, DRESSING DRY AND INTACT, DENIES PAIN TO SITE. DISCHARGE INSTRUCTIONS GIVEN TO AND PT, VERBALIZED UNDERSTANDING.
== END 2019-06-29 16:15 | disposition home or self-care (01) ==
LOC: DAH 09:34
PROVIDERS: ATTEND Internal Medicine Cardiovascular Disease
DX: I25.118 Atherosclerotic heart disease of native coronary artery with other forms of angina pectoris (principal); I25.3 Aneurysm of heart; I34.0 Nonrheumatic mitral (valve) insufficiency; I48.92 Unspecified atrial flutter; E11.9 Type 2 diabetes mellitus without complications; E78.2 Mixed hyperlipidemia; Z88.8 Allergy status to other drugs, medicaments and biological substances; Z79.84 Long term (current) use of oral hypoglycemic drugs; Z79.899 Other long term (current) drug therapy; Z79.82 Long term (current) use of aspirin; Z79.01 Long term (current) use of anticoagulants; Z72.89 Other problems related to lifestyle; Z87.891 Personal history of nicotine dependence; Z82.49 Family history of ischemic heart disease and other diseases of the circulatory system; Z83.3 Family history of diabetes mellitus; Z82.5 Family history of asthma and other chronic lower respiratory diseases
CPT/HCPCS: 36415; 71045; 80048; 81001; 82948; 85025; 85610; 85730; 93005; 93459; A4215; A4216; A4221; A4222; A4223 ×2; A4606; A4663; C1760; C1769 ×3; C1874; C1884; C1887; C1894 ×2; C9604; J0360; J0583; J1644; J2250; J3010; J3490 ×4; J7030; Q9965 ×2; Q9967 ×2; 99156; 99157

== ENCOUNTER 2019-07-31 11:04 | Day surgery (SDC) | payer MEDICARE ==
[2019-07-29 10:25] LABS: BASOPHILS % (AUTO) 0.8 % (0.0-5.0); LYMPHOCYTES % (AUTO) 21.3 % (21.0-51.0); MEAN CORPUSCULAR HEMOGLOBIN 28.4 pg (27.0-33.0); MEAN CORPUSCULAR HGB CONC 31.9 g/dL (32.0-36.0); MONOCYTES % (AUTO) 10.1 % (3.0-13.0); NEUTROPHILS % (AUTO) 64.4 % (40.0-77.0); PLATELET COUNT (AUTO) 230 K/uL (130-400); RED BLOOD CELL COUNT(AUTO) 5.28 MIL/uL (4.50-6.20); RED CELL DISTRIBUTION WIDTH 13.5 % (11.0-15.5); WHITE BLOOD COUNT (AUTO) 7.7 K/uL (4.8-10.8)
[2019-07-29 10:26] LABS: APPEARANCE,URINE Clear (CLEAR); BILIRUBIN,URINE Negative (NEGATIVE); COLOR,URINE Yellow (YELLOW); GLUCOSE, URINE (UA) >=1000 mg/dL (NEGATIVE); KETONES,URINE Negative (NEGATIVE); LEUKOCYTE ESTERASE ,URINE Negative (NEGATIVE); NITRATE,URINE Negative (NEGATIVE); OCCULT BLOOD,URINE Negative (NEGATIVE); PH,URINE 5.5 (5.0-8.0); PROTEIN,URINE Negative (NEGATIVE)
[2019-07-29 10:34] LABS: CREATININE 1.2 mg/dL (0.5-1.5); POTASSIUM 4.9 mmol/L (3.5-5.1)
[2019-07-29 10:38] LABS: INR 1.02 (0.85-1.15); PARTIAL THROMBOPLASTIN TIME 24.7 SEC (26.3-35.5); PROTHROMBIN TIME 10.7 SEC (9.6-11.6)
[2019-07-29 11:10] VITALS: BP 110/65
[2019-07-29 11:44] LABS: BACTERIA,URINE Rare /HPF (None Seen); RBC,URINE None Seen /HPF (0-1); SQUAMOUS EPITHELIAL CELL,UR Few /HPF (0-2); WBC,URINE None Seen /HPF (0-1)
--- NOTE | 2019-07-30 12:41 | NUR ---
REPORTED ALL ABNORMAL LABS TO ZAIR[facility] CORTÉS, NO NEW ORDERS FOR LABS. ABNORMAL X-RAY REPORTED ORDERS ARE TO EVALUATE PATIENT IN AM TO ASSESS HOW PATIENT IS FEELING AND REPORT TO DR. JAY. ZAIR[facility] CORTÉS WILL BE OUT OF TOWN IN TOMORROW. Addendum: 07/30/19 at 1246 by MARIO CONTI RN RN ABNORMAL X-RAY REPORTED TO [facility]AIR[facility] CORT[facility], ORDERS ARE TO EVALUATE PATIENT IN AM TO ASSESS HOW PATIENT IS FEELING AND REPORT OT DR. JAY. [facility]AIR[facility] CORT[facility]S OUT OF TOWN TOMORROW.
[2019-07-31] VITALS (9 sets, daily range): BP systolic 98–156; BP diastolic 63–91
[~2019-07-31] VITALS: Ht 186.7 cm; Wt 112.1 kg
[~2019-07-31 11:04] MED LIST changes: -FINA5TAB41 PO
[2019-07-31] MEDS ORDERED: IOHEXOL 350 MG/ML 100ML INFUS..BTL IV ONE (13:35)
[2019-07-31] MEDS ORDERED: IOHEXOL-350 50ML VIAL IV ONE (13:35)
[2019-07-31] MEDS ORDERED: SODIUM BICARB 50MEQ 50ML VIAL ONE (13:35)
[2019-07-31] MEDS ORDERED: NITROGLYCERIN 1 MG/VIAL VIAL IV ONE (13:35)
[2019-07-31] MEDS ORDERED: HEPARIN SODIUM 1000UNIT/ML 10ML VIAL ONE (13:35)
[2019-07-31] MEDS ORDERED: BIVALIRUDIN 250 MG/VIAL IV ONE (13:35)
[2019-07-31] MEDS ORDERED: LIDOCAINE HCL 2% 20ML ONE (13:36)
[2019-07-31] MEDS ORDERED: FENTANYL CITRATE PF 50 MCG/1 ML 2ML VIAL ONE (14:44)
[2019-07-31] MEDS ORDERED: MIDAZOLAM HCL 1 MG/ML 2ML VIAL ONE (14:44)
--- NOTE | 2019-07-31 16:30 | NUR ---
BLOOD GLUCOSE CHECK PT REFUSED BLOOD GLUCOSE CHECK. 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 PT EATING SUPPER AT THIS TIME.
--- NOTE | 2019-07-31 17:35 | NUR ---
BEDREST CLARIFIED BEDREST ORDER, PER DR. JAY, BEDREST FOR 2 HOURS.
--- NOTE | 2019-07-31 19:15 | NUR ---
DISCHARGE PT DISCHARGE VIA WHEELCHAIR WITH . PT STABLE. NO COMPLAINTS MADE. CATH SITE RIGHT GROIN REMAINS SOFT, DRESSING DRY AND INTACT, NO OOZING NO HEMATOMA NOTED. DISCHARGE INSTRUCTIONS GIVEN TO AND PT, BOTH VERBALIZED UNDERSTANDING. PT VOIDED PRIOR TO DISCHARGE.
== END 2019-07-31 19:15 | disposition home or self-care (01) ==
LOC: DAH 11:04
PROVIDERS: ATTEND Internal Medicine Cardiovascular Disease
DX: I25.709 Atherosclerosis of coronary artery bypass graft(s), unspecified, with unspecified angina pectoris (principal); I34.0 Nonrheumatic mitral (valve) insufficiency; E78.5 Hyperlipidemia, unspecified; K21.9 Gastro-esophageal reflux disease without esophagitis; G47.30 Sleep apnea, unspecified; I25.2 Old myocardial infarction; Z88.8 Allergy status to other drugs, medicaments and biological substances; Z79.84 Long term (current) use of oral hypoglycemic drugs; Z79.899 Other long term (current) drug therapy; Z79.01 Long term (current) use of anticoagulants; Z79.82 Long term (current) use of aspirin; Z86.711 Personal history of pulmonary embolism; Z98.61 Coronary angioplasty status; Z72.89 Other problems related to lifestyle
CPT/HCPCS: 36415; 71045; 80048; 81001; 82948; 85025; 85610; 85730; 93005; 93459; A4215; A4216; A4221; A4223 ×3; A4606; C1760; C1769; C1894 ×2; J1644; J2250; J3010; J3490 ×3; Q9965; Q9967 ×2; 99156; 99157; J0583

== ENCOUNTER → 2019-10-27 | Outpatient (CLI) | payer MEDICARE | END | disposition home or self-care (01) | LOC: RAH 12:34 | PROVIDERS: ATTEND Internal Medicine | DX: J47.9 Bronchiectasis, uncomplicated (principal); J92.9 Pleural plaque without asbestos; J98.4 Other disorders of lung; K76.0 Fatty (change of) liver, not elsewhere classified; K80.20 Calculus of gallbladder without cholecystitis without obstruction; I70.0 Atherosclerosis of aorta; I25.10 Atherosclerotic heart disease of native coronary artery without angina pectoris | CPT/HCPCS: 71250 ==

== ENCOUNTER 2020-02-22 09:11 | Observation (INO) | payer MEDICARE ==
[2020-02-22] VITALS (10 sets, daily range): BP systolic 110–169; BP diastolic 66–88
[~2020-02-22 09:11] MED LIST changes: -RANO500T5 PO; +RANO500T6 PO
[2020-02-22 09:26] LABS: BASOPHILS % (AUTO) 0.7 % (0.0-5.0); EOSINOPHILS % (AUTO) 2.3 % (0.0-8.0); HEMATOCRIT 46.1 % (42-54); LYMPHOCYTES % (AUTO) 23.6 % (21.0-51.0); MEAN CORPUSCULAR HEMOGLOBIN 28.6 pg (27.0-33.0); MEAN CORPUSCULAR VOLUME 86.7 fL (79-99); NEUTROPHILS % (AUTO) 64.1 % (40.0-77.0); PLATELET COUNT (AUTO) 227 K/uL (130-400); RED BLOOD CELL COUNT(AUTO) 5.32 MIL/uL (4.50-6.20); RED CELL DISTRIBUTION WIDTH 14.4 % (11.0-15.5)
[2020-02-22] MEDS ORDERED: NITROGLYCERIN 1GM/1 INCH PACKET TD ONE (09:30)
[2020-02-22 09:37] LABS: CREATININE 1.4 mg/dL (0.5-1.5); POTASSIUM 4.2 mmol/L (3.5-5.1)
[2020-02-22 09:42] LABS: ALBUMIN 3.5 g/dL (3.5-5.0); BILIRUBIN,TOTAL 0.6 mg/dL (0.2-1.0); TOTAL PROTEIN, SERUM 6.6 g/dL (6.0-8.3)
[2020-02-22 10:03] LABS: INR 0.93 (0.85-1.15); PARTIAL THROMBOPLASTIN TIME 25.1 SEC (26.3-35.5); PROTHROMBIN TIME 10.1 SEC (9.6-11.6)
[2020-02-22] MEDS ORDERED: HEPARIN SODIUM 1000UNIT/ML 10ML VIAL ONE (10:44)
[2020-02-22] MEDS ORDERED: IOHEXOL 350 MG/ML 100ML INFUS..BTL IV ONE (10:44)
[2020-02-22] MEDS ORDERED: NICARDIPINE HCL 25 MG/10 ML ML IV ONE (10:44)
[2020-02-22] MEDS ORDERED: NITROGLYCERIN 2 MG/VIAL VIAL IV ONE (10:45)
[2020-02-22] MEDS ORDERED: SODIUM BICARB 50MEQ 50ML VIAL ONE (10:45)
[2020-02-22] MEDS ORDERED: IOHEXOL-350 75 ML VIAL IV ONE (10:45)
[2020-02-22] MEDS ORDERED: FENTANYL CITRATE PF 50 MCG/1 ML 2ML VIAL ONE (10:45)
[2020-02-22] MEDS ORDERED: LIDOCAINE HCL 2% 20ML ONE (10:45)
[2020-02-22] MEDS ORDERED: MIDAZOLAM HCL 1 MG/ML 2ML VIAL ONE (10:45)
[2020-02-22] MEDS ORDERED: SODIUM CHLORIDE 0.9% 500ML 500 ML IV SCH (10:48)
[2020-02-22] MEDS ORDERED: BIVALIRUDIN 250 MG/VIAL IV ONE (11:23)
[2020-02-22] MEDS ORDERED: GUAIFENESIN-DM 200/20 MG 10 ML PO PRN (11:30)
[2020-02-22] MEDS: INSULIN HUMULIN R 100 UNIT/ML 3ML SQ SCH ×3 (11:30→20:32)
[2020-02-22] MEDS ORDERED: MAG HYDROX/AL HYDROX/SIMETH ES 30 ML SUSP UDCUP PO PRN (11:30)
[2020-02-22] MEDS ORDERED: DIPHENHYDRAMINE HCL 25 MG CAPSULE PO PRN (11:30)
[2020-02-22] MEDS ORDERED: MORPHINE SULFATE 2 MG/ML 1ML SYG IV PRN (11:30)
[2020-02-22] MEDS ORDERED: MORPHINE SULFATE 4 MG/1ML SYG IV PRN (11:30)
[2020-02-22] MEDS ORDERED: ONDANSETRON HCL 4 MG/2 ML VIAL IV PRN (11:30)
[2020-02-22] MEDS ORDERED: HYDRALAZINE HCL 20 MG/ML VIAL IV PRN (11:30)
[2020-02-22] MEDS ORDERED: ACETAMINOPHEN 325 MG TAB PO PRN ×2 (11:30)
[2020-02-22] MEDS ORDERED: ACETAMINOPHEN-CODEINE 300/30MG TAB PO PRN (11:30)
[2020-02-22] MEDS ORDERED: ZOLPIDEM TARTRATE 5 MG TAB PO PRN (11:30)
[2020-02-22] MEDS ORDERED: DiphenhydrAMINE HCL 50 MG/ML VIAL IV PRN (11:30)
[2020-02-22] MEDS ORDERED: LACTULOSE 20 GM/30 ML UDCUP PO PRN (11:30)
[2020-02-22] MEDS ORDERED: POTASSIUM CHLORIDE 20 MEQ ERTAB PO PRN (11:30)
[2020-02-22] MEDS ORDERED: MAGNESIUM 2GM PREMIX 50ML 50 ML IV PRN (11:30)
[2020-02-22] MEDS ORDERED: NITROGLYCERIN 0.4 MG SL TAB SL PRN (11:30)
[2020-02-22] MEDS ORDERED: POTASSIUM CHLORIDE 10% ELIXIR 20 MEQ/15 ML UDCUP PO PRN (11:30)
[2020-02-22] MEDS ORDERED: POTASSIUM CHLORIDE 20MEQ/100ML 100 ML IV PRN (11:30)
[2020-02-22] MEDS ORDERED: LIDOCAINE HCL-MPF 1% 2ML VIAL IV PRN (11:30)
[2020-02-22] MEDS ORDERED: TICAGRELOR 90 MG TABLET ONE (11:52)
[2020-02-22] MEDS: RANOLAZINE 500 MG TAB.SR.12H PO SCH (20:17)
[2020-02-22] MEDS: METOPROLOL TARTRATE 50 MG TAB PO SCH (20:17)
[2020-02-22] MEDS ORDERED: LISINOPRIL 10 MG TABLET PO SCH (21:00)
[2020-02-22] MEDS ORDERED: DOXAZOSIN MESYLATE 2 MG TABLET PO SCH (21:00)
[2020-02-23 03:58] VITALS: BP 96/53
[2020-02-23] MEDS: INSULIN HUMULIN R 100 UNIT/ML 3ML SQ SCH (04:12)
[2020-02-23 05:13] LABS: BASOPHILS % (AUTO) 0.6 % (0.0-5.0); EOSINOPHILS % (AUTO) 1.6 % (0.0-8.0); HEMATOCRIT 44.5 % (42-54); LYMPHOCYTES % (AUTO) 16.7 % (21.0-51.0); MEAN CORPUSCULAR HEMOGLOBIN 28.2 pg (27.0-33.0); MEAN CORPUSCULAR HGB CONC 33.3 g/dL (32.0-36.0); MEAN CORPUSCULAR VOLUME 84.9 fL (79-99); NEUTROPHILS % (AUTO) 70.2 % (40.0-77.0); PLATELET COUNT (AUTO) 221 K/uL (130-400); RED BLOOD CELL COUNT(AUTO) 5.24 MIL/uL (4.50-6.20); RED CELL DISTRIBUTION WIDTH 14.4 % (11.0-15.5); WHITE BLOOD COUNT (AUTO) 8.6 K/uL (4.8-10.8)
[2020-02-23 05:23] LABS: B-TYPE NATRIURETIC PEPTIDE 158 pg/mL (0-100); HEMOGLOBIN A1C 6.2 % (4.0-6.0)
[2020-02-23 05:49] LABS: ALBUMIN 3.3 g/dL (3.5-5.0); BILIRUBIN,TOTAL 0.8 mg/dL (0.2-1.0); CREATININE 1.2 mg/dL (0.5-1.5); MAGNESIUM 2.4 mg/dL (1.80-2.40); POTASSIUM 4.5 mmol/L (3.5-5.1); TOTAL PROTEIN, SERUM 6.4 g/dL (6.0-8.3)
[2020-02-23 08:41] VITALS: BP 117/61
[2020-02-23] MEDS ORDERED: FAMOTIDINE 20MG TAB 20 MG TAB PO SCH (09:00)
[2020-02-23] MEDS ORDERED: CLOPIDOGREL BISULFATE 75 MG TAB PO SCH (09:00)
[2020-02-23] MEDS ORDERED: ASPIRIN 81 MG EC TAB PO SCH (09:00)
[2020-02-23] MEDS: METOPROLOL TARTRATE 50 MG TAB PO SCH (09:16)
[2020-02-23] MEDS: RANOLAZINE 500 MG TAB.SR.12H PO SCH (09:17)
[2020-02-23 12:34] VITALS: BP 108/59
== END 2020-02-23 14:43 | disposition home or self-care (01) ==
LOC: EDH 09:11 → EDHIP 11:16 → 4DH 13:28
PROVIDERS: ADMIT Internal Medicine; ATTEND Internal Medicine
DX: I21.4 Non-ST elevation (NSTEMI) myocardial infarction (principal); I25.110 Atherosclerotic heart disease of native coronary artery with unstable angina pectoris; I25.3 Aneurysm of heart; I10 Essential (primary) hypertension; E78.5 Hyperlipidemia, unspecified; E11.9 Type 2 diabetes mellitus without complications; F17.210 Nicotine dependence, cigarettes, uncomplicated; Z79.02 Long term (current) use of antithrombotics/antiplatelets; Z79.82 Long term (current) use of aspirin; Z86.711 Personal history of pulmonary embolism; Z88.8 Allergy status to other drugs, medicaments and biological substances; Z79.84 Long term (current) use of oral hypoglycemic drugs
CPT/HCPCS: 36415 ×2; 71045 ×2; 80053 ×2; 80061; 82550; 83036; 83735; 83880; 84484; 85025 ×2; 85610; 85730; 93005; 93459; C1725; C1769 ×2; C1874; C1887; C1894 ×3; C9604; G0378 ×27; J0583; J1644 ×2; J2405; J3490 ×4; Q9965 ×2; Q9967 ×2; 96374; J2250; J3010

== ENCOUNTER 2020-08-23 09:14 | Inpatient (IN) | payer MEDICARE ==
[~2020-08-23] VITALS: Ht 185.4 cm; Wt 106.6 kg
[~2020-08-23 09:14] MED LIST changes: +LISI10TA24 PO; -LISI10TA7 PO; -PANT40TA25 PO; +PANT40TA54 PO
[2020-08-23] MEDS ORDERED: ASPIRIN 325 MG TABLET ONE (09:28)
[2020-08-23] MEDS ORDERED: ASPIRIN 81MG CHEW TAB ONE (09:30)
[2020-08-23 09:53] LABS: BASOPHILS % (AUTO) 0.3 % (0.0-5.0); EOSINOPHILS % (AUTO) 0.6 % (0.0-8.0); LYMPHOCYTES % (AUTO) 9.6 % (21.0-51.0); MEAN CORPUSCULAR HEMOGLOBIN 28.9 pg (27.0-33.0); MEAN CORPUSCULAR VOLUME 87.4 fL (79-99); MONOCYTES % (AUTO) 7.5 % (3.0-13.0); NEUTROPHILS % (AUTO) 81.5 % (40.0-77.0); PLATELET COUNT (AUTO) 230 K/uL (130-400); RED BLOOD CELL COUNT(AUTO) 4.92 MIL/uL (4.50-6.20); RED CELL DISTRIBUTION WIDTH 14.5 % (11.0-15.5); WHITE BLOOD COUNT (AUTO) 15.6 K/uL (4.8-10.8)
[2020-08-23 10:04] LABS: INR 1.07 (0.85-1.15); PROTHROMBIN TIME 11.6 SEC (9.6-11.6)
[2020-08-23 10:05] LABS: PARTIAL THROMBOPLASTIN TIME 25.4 SEC (26.3-35.5)
[2020-08-23 10:07] LABS: ALBUMIN 3.2 g/dL (3.5-5.0); BILIRUBIN,TOTAL 0.9 mg/dL (0.2-1.0); CREATININE 1.1 mg/dL (0.5-1.5); POTASSIUM 4.6 mmol/L (3.5-5.1); TOTAL PROTEIN, SERUM 6.6 g/dL (6.0-8.3)
[2020-08-23 10:56] LABS: APPEARANCE,URINE Cloudy (CLEAR); BILIRUBIN,URINE Negative (NEGATIVE); COLOR,URINE Yellow (YELLOW); GLUCOSE, URINE (UA) >=1000 mg/dL (NEGATIVE); KETONES,URINE Negative (NEGATIVE); LEUKOCYTE ESTERASE ,URINE Moderate (NEGATIVE); NITRATE,URINE Negative (NEGATIVE); OCCULT BLOOD,URINE Negative (NEGATIVE); PROTEIN,URINE Negative (NEGATIVE); UROBILINOGEN,URINE 0.2 mg/dL (0.2-1.0)
[2020-08-23 11:05] LABS: BACTERIA,URINE Many /HPF (None Seen); RBC,URINE 0-1 /HPF (0-1); WBC,URINE 26-50 /HPF (0-1)
[2020-08-23] MEDS: PANTOPRAZOLE 40 MG TAB DR PO SCH (12:45)
[2020-08-23] MEDS ORDERED: KCL 20 MEQ ERTAB PO PRN (12:45)
[2020-08-23] MEDS ORDERED: GLUCAGON 1MG KIT 1 MG ML IM PRN (12:45)
[2020-08-23] MEDS ORDERED: DEXTROSE 50%-WATER 50 ML DISP.SYRIN IV PRN (12:45)
[2020-08-23] MEDS ORDERED: POTASSIUM CHLORIDE 20MEQ/100ML 100 ML IV PRN ×2 (12:45)
[2020-08-23] MEDS ORDERED: LIDOCAINE HCL-MPF 1% 2ML VIAL IV PRN ×2 (12:45)
[2020-08-23] MEDS ORDERED: ONDANSETRON 4MG INJ IVP PRN (12:45)
[2020-08-23] MEDS ORDERED: POTASSIUM CHLORIDE 10% ELIXIR 20 MEQ/15 ML UDCUP PO PRN (12:45)
[2020-08-23] MEDS: ENOXAPARIN SODIUM 40 MG/0.4 ML SYRINGE SQ SCH (12:45)
[2020-08-23] MEDS ORDERED: MAGNESIUM 2GM PREMIX 50ML 50 ML IV PRN (12:45)
[2020-08-23] MEDS ORDERED: ACETAMINOPHEN 325 MG TAB PO PRN (12:45)
[2020-08-23] MEDS ORDERED: PANTOPRAZOLE 40 MG TAB DR ONE (13:15)
[2020-08-23] MEDS ORDERED: ENOXAPARIN SODIUM 40 MG/0.4 ML SYRINGE SQ ONE (13:15)
[2020-08-23] MEDS: CEFTRIAXONE 1G VIAL IVP SCH (14:00)
[2020-08-23] MEDS ORDERED: IOHEXOL-350 75 ML VIAL IV ONE (16:09)
[2020-08-23 17:38] VITALS: BP 130/71
[2020-08-23 20:23] VITALS: BP 137/71
[2020-08-24] VITALS (12 sets, daily range): BP systolic 114–152; BP diastolic 56–86
[2020-08-24 04:31] LABS: HEMATOCRIT 42.8 % (42-54); MEAN CORPUSCULAR HEMOGLOBIN 28.2 pg (27.0-33.0); MEAN CORPUSCULAR VOLUME 88.1 fL (79-99); RED BLOOD CELL COUNT(AUTO) 4.86 MIL/uL (4.50-6.20); RED CELL DISTRIBUTION WIDTH 14.6 % (11.0-15.5); WHITE BLOOD COUNT (AUTO) 9.9 K/uL (4.8-10.8)
[2020-08-24 04:39] LABS: CREATININE 1.2 mg/dL (0.5-1.5); MAGNESIUM 2.3 mg/dL (1.80-2.40); POTASSIUM 4.3 mmol/L (3.5-5.1)
[2020-08-24] MEDS: ENOXAPARIN SODIUM 40 MG/0.4 ML SYRINGE SQ SCH (07:27)
[2020-08-24] MEDS: PANTOPRAZOLE 40 MG TAB DR PO SCH (07:28)
[2020-08-24] MEDS ORDERED: NITROGLYCERIN 2 MG VIAL IV ONE (12:13)
[2020-08-24] MEDS ORDERED: BIVALIRUDIN 250 MG/VIAL IV ONE ×2 (12:13→12:43)
[2020-08-24] MEDS ORDERED: LIDOCAINE HCL 400MG/20ML VIAL ONE (12:14)
[2020-08-24] MEDS ORDERED: IOHEXOL 350 MG/ML 100ML INFUS..BTL IV ONE (12:14)
[2020-08-24] MEDS ORDERED: IOHEXOL-350 50ML VIAL IV ONE (12:14)
[2020-08-24] MEDS ORDERED: SODIUM BICARB 50MEQ 50ML VIAL 50 ML ONE (12:16)
[2020-08-24] MEDS ORDERED: MIDAZOLAM HCL 1 MG/ML 2ML VIAL ONE (12:43)
[2020-08-24] MEDS ORDERED: FENTANYL CITRATE PF 50 MCG/1 ML 2ML VIAL ONE (12:43)
[2020-08-24] MEDS ORDERED: 0.9%NACL 1000ML 1,000 ML IV PRN (13:45)
[2020-08-24] MEDS ORDERED: ALBUMIN FOR BP SUPPORT MISC PRN (13:45)
[2020-08-24] MEDS ORDERED: ACETAMINOPHEN 325 MG TAB PO PRN (13:45)
[2020-08-24] MEDS ORDERED: NITROGLYCERIN 0.4 MG SL TAB SL PRN (13:45)
[2020-08-24] MEDS ORDERED: LIDOCAINE HCL-MPF 1% 2ML VIAL IJ PRN (13:45)
[2020-08-24] MEDS ORDERED: 0.9%NACL 1000ML IV PRN (13:45)
[2020-08-24] MEDS ORDERED: HEPARIN 5,000 UNIT VIAL IJ PRN ×2 (13:45)
[2020-08-24] MEDS ORDERED: 0.9%NACL 1000ML 1,000 ML IV SCH (14:00)
[2020-08-24] MEDS ORDERED: NITROGLYCERIN 0.4 MG SL TAB SL SCH (14:15)
[2020-08-24] MEDS ORDERED: HOME MEDICATION 1 EACH SQ SCH (14:15)
[2020-08-24] MEDS: CEFTRIAXONE 1G VIAL IVP SCH (14:18)
[2020-08-24] MEDS: DOXAZOSIN MESYLATE 2 MG TABLET PO SCH (20:49)
[2020-08-24] MEDS: METOPROLOL TARTRATE 50 MG TAB PO SCH (20:49)
[2020-08-24] MEDS: LISINOPRIL 10 MG TABLET PO SCH (20:50)
[2020-08-24] MEDS: RANOLAZINE 500 MG TAB.SR.12H PO SCH (20:50)
[2020-08-25] VITALS (7 sets, daily range): BP systolic 107–132; BP diastolic 51–73
[2020-08-25] MEDS: ASPIRIN 81 MG EC TAB PO SCH (08:14)
[2020-08-25] MEDS: CLOPIDOGREL 75MG TAB PO SCH (08:14)
[2020-08-25] MEDS: PANTOPRAZOLE 40 MG TAB DR PO SCH ×2 (08:14→08:16)
[2020-08-25] MEDS: METOPROLOL TARTRATE 50 MG TAB PO SCH ×2 (08:14→21:43)
[2020-08-25] MEDS: ENOXAPARIN SODIUM 40 MG/0.4 ML SYRINGE SQ SCH (08:15)
[2020-08-25] MEDS: RANOLAZINE 500 MG TAB.SR.12H PO SCH ×2 (08:17→21:43)
[2020-08-25] MEDS: EMPAGLIFLOZIN 10 MG PO SCH (09:00)
[2020-08-25] MEDS: COENZYME Q10 PO SCH (09:00)
[2020-08-25] MEDS: CHOLECALCIFEROL 400 UNIT PO SCH (09:00)
[2020-08-25] MEDS: CEFTRIAXONE 1G VIAL IVP SCH (14:03)
[2020-08-25] MEDS: LISINOPRIL 10 MG TABLET PO SCH (21:43)
[2020-08-25] MEDS: DOXAZOSIN MESYLATE 2 MG TABLET PO SCH (21:44)
[2020-08-26 04:42] VITALS: BP 122/65
[2020-08-26 04:52] LABS: CREATININE 1.1 mg/dL (0.5-1.5)
[2020-08-26 08:00] VITALS: BP 125/72
[2020-08-26] MEDS: CLOPIDOGREL 75MG TAB PO SCH (08:50)
[2020-08-26] MEDS: PANTOPRAZOLE 40 MG TAB DR PO SCH ×2 (08:50→08:56)
[2020-08-26] MEDS: RANOLAZINE 500 MG TAB.SR.12H PO SCH ×2 (08:50→20:45)
[2020-08-26] MEDS: METOPROLOL TARTRATE 50 MG TAB PO SCH ×2 (08:50→20:46)
[2020-08-26] MEDS: ASPIRIN 81 MG EC TAB PO SCH (08:50)
[2020-08-26] MEDS: ENOXAPARIN SODIUM 40 MG/0.4 ML SYRINGE SQ SCH (08:55)
[2020-08-26] MEDS: CHOLECALCIFEROL 400 UNIT PO SCH (08:55)
[2020-08-26] MEDS: EMPAGLIFLOZIN 10 MG PO SCH (08:55)
[2020-08-26] MEDS: COENZYME Q10 PO SCH (08:55)
[2020-08-26] MEDS ORDERED: CEFTRIAXONE 500MG VIAL IV SCH (09:00)
[2020-08-26 12:00] VITALS: BP 104/61
[2020-08-26] MEDS: CEFTRIAXONE 1G VIAL IVP SCH (14:26)
[2020-08-26 16:00] VITALS: BP 117/65
[2020-08-26 20:00] VITALS: BP 123/71
[2020-08-26] MEDS: LISINOPRIL 10 MG TABLET PO SCH (20:46)
[2020-08-26] MEDS: DOXAZOSIN MESYLATE 2 MG TABLET PO SCH (20:46)
== END 2020-08-26 23:00 | disposition short-term general hospital (02) | DRG 287 ==
LOC: EDH 09:14 → OBSVTOIN 12:44 → EDHIP 12:44 → 4CH 17:37
PROVIDERS: ADMIT Internal Medicine Critical Care Medicine; ATTEND Internal Medicine Critical Care Medicine
PROC: 4A023N7 Measurement of Cardiac Sampling and Pressure, Left Heart, Percutaneous Approach (ICD-10-PCS; principal; 2020-08-24)
PROC: B2181ZZ Fluoroscopy of Left Internal Mammary Bypass Graft using Low Osmolar Contrast (ICD-10-PCS; 2020-08-24)
PROC: B2151ZZ Fluoroscopy of Left Heart using Low Osmolar Contrast (ICD-10-PCS; 2020-08-24)
PROC: B2111ZZ Fluoroscopy of Multiple Coronary Arteries using Low Osmolar Contrast (ICD-10-PCS; 2020-08-24)
PROC: B2121ZZ Fluoroscopy of Single Coronary Artery Bypass Graft using Low Osmolar Contrast (ICD-10-PCS; 2020-08-24)
DX: T82.855A Stenosis of coronary artery stent, initial encounter (principal); I24.9 Acute ischemic heart disease, unspecified; N39.0 Urinary tract infection, site not specified; I25.119 Atherosclerotic heart disease of native coronary artery with unspecified angina pectoris; Z20.822 Contact with and (suspected) exposure to COVID-19; Z95.1 Presence of aortocoronary bypass graft; B96.89 Other specified bacterial agents as the cause of diseases classified elsewhere; E11.9 Type 2 diabetes mellitus without complications; I10 Essential (primary) hypertension; I25.2 Old myocardial infarction; E66.9 Obesity, unspecified; Z82.49 Family history of ischemic heart disease and other diseases of the circulatory system; Z83.3 Family history of diabetes mellitus; Z82.3 Family history of stroke; E78.5 Hyperlipidemia, unspecified; Z68.31 Body mass index [BMI] 31.0-31.9, adult; Z79.02 Long term (current) use of antithrombotics/antiplatelets; Z79.82 Long term (current) use of aspirin; Z79.84 Long term (current) use of oral hypoglycemic drugs; Z86.711 Personal history of pulmonary embolism; Z95.5 Presence of coronary angioplasty implant and graft; Z79.899 Other long term (current) drug therapy; Y83.8 Other surgical procedures as the cause of abnormal reaction of the patient, or of later complication, without mention of misadventure at the time of the procedure; Y92.89 Other specified places as the place of occurrence of the external cause
CPT/HCPCS: 36415; 71045; 71275; 80048; 80053; 81001; 82550; 82948; 83735; 84484; 85025; 85027; 85378; 85610; 85730; 87077; 87088; 87186; 87426; 93005; 93459; 99156; 99157; C1769; C1894; G0378; J0583; J0696; J1644; J1650; J2250; J3010; J3490; Q9967; U0003

== ENCOUNTER 2020-11-10 18:37 | Emergency (ER) | payer MEDICARE ==
[~2020-11-10 18:37] MED LIST changes: -METF-444 PO
[2020-11-10 19:55] LABS: BASOPHILS % (AUTO) 0.5 % (0.0-5.0); EOSINOPHILS % (AUTO) 4.8 % (0.0-8.0); HEMATOCRIT 44.7 % (42-54); LYMPHOCYTES % (AUTO) 27.1 % (21.0-51.0); MEAN CORPUSCULAR HEMOGLOBIN 26.8 pg (27.0-33.0); MEAN CORPUSCULAR HGB CONC 30.9 g/dL (32.0-36.0); NEUTROPHILS % (AUTO) 57.9 % (40.0-77.0); PLATELET COUNT (AUTO) 280 K/uL (130-400); RED BLOOD CELL COUNT(AUTO) 5.14 MIL/uL (4.50-6.20); RED CELL DISTRIBUTION WIDTH 13.7 % (11.0-15.5); WHITE BLOOD COUNT (AUTO) 9.8 K/uL (4.8-10.8)
[2020-11-10 20:06] LABS: POTASSIUM 4.5 mmol/L (3.5-5.1)
[2020-11-10 20:15] LABS: ALBUMIN 3.9 g/dL (3.5-5.0); BILIRUBIN,TOTAL 0.6 mg/dL (0.2-1.0); TOTAL PROTEIN, SERUM 7.6 g/dL (6.0-8.3)
[2020-11-10 20:22] LABS: B-TYPE NATRIURETIC PEPTIDE 111 pg/mL (0-100)
[2020-11-10] MEDS ORDERED: IOHEXOL-350 75 ML VIAL IV ONE (21:14)
== END 2020-11-10 23:02 | disposition home or self-care (01) ==
LOC: EDH 18:37
DX: I25.10 Atherosclerotic heart disease of native coronary artery without angina pectoris (principal); E11.9 Type 2 diabetes mellitus without complications; I10 Essential (primary) hypertension; Z95.1 Presence of aortocoronary bypass graft; I25.2 Old myocardial infarction; Z88.8 Allergy status to other drugs, medicaments and biological substances
CPT/HCPCS: 36415; 71046; 71275; 80053; 82550; 83880; 84484; 85025; 85378; 93005; 99285; Q9967

== ENCOUNTER 2021-03-28 00:44 | Observation (INO) | payer MEDICARE ==
[~2021-03-28] VITALS: Ht 185.4 cm; Wt 105.5 kg
[2021-03-28] MEDS ORDERED: ASPIRIN 325MG TAB PO ONE (01:15)
[2021-03-28] MEDS ORDERED: NITROGLYCERIN 1GM OINT 1 INCH/1GM TD ONE ×2 (01:15→01:16)
[2021-03-28] MEDS ORDERED: ASPIRIN 325MG TAB ONE (01:16)
[2021-03-28 01:38] LABS: BASOPHILS % (AUTO) 0.4 % (0.0-5.0); EOSINOPHILS % (AUTO) 2.6 % (0.0-8.0); HEMATOCRIT 43.2 % (42-54); LYMPHOCYTES % (AUTO) 22.3 % (21.0-51.0); MEAN CORPUSCULAR HEMOGLOBIN 26.3 pg (27.0-33.0); MEAN CORPUSCULAR HGB CONC 31.3 g/dL (32.0-36.0); MONOCYTES % (AUTO) 7.8 % (3.0-13.0); NEUTROPHILS % (AUTO) 66.3 % (40.0-77.0); PLATELET COUNT (AUTO) 231 K/uL (130-400); RED BLOOD CELL COUNT(AUTO) 5.14 MIL/uL (4.50-6.20); WHITE BLOOD COUNT (AUTO) 10.4 K/uL (4.8-10.8)
[2021-03-28 01:46] LABS: POTASSIUM 3.7 mmol/L (3.5-5.1)
[2021-03-28 01:49] LABS: ALBUMIN 3.6 g/dL (3.5-5.0); BILIRUBIN,TOTAL 0.3 mg/dL (0.2-1.0); TOTAL PROTEIN, SERUM 6.9 g/dL (6.0-8.3)
[2021-03-28 02:23] LABS: MAGNESIUM 2.4 mg/dL (1.80-2.40)
[2021-03-28] MEDS ORDERED: ASPI-1005 PO (05:23)
[2021-03-28] MEDS ORDERED: NITR0.4T50 SL (05:23)
[2021-03-28] MEDS ORDERED: GABA-533 PO (05:23)
[2021-03-28] MEDS ORDERED: PANT40TA54 PO (05:23)
[2021-03-28] MEDS ORDERED: METF-526 PO (05:23)
[2021-03-28] MEDS ORDERED: EVOL140S2 SQ (05:24)
[2021-03-28] MEDS ORDERED: POTA10CA44 PO (05:24)
[2021-03-28] MEDS ORDERED: UBID400C6 PO (05:24)
[2021-03-28] MEDS ORDERED: FURO20TA6 PO (05:24)
[2021-03-28] MEDS ORDERED: VITAD50000 PO (05:24)
[2021-03-28] MEDS ORDERED: METO25TA6 PO (05:24)
[2021-03-28] MEDS: PANTOPRAZOLE 40 MG/VIAL IVP SCH (09:51)
[2021-03-28] MEDS ORDERED: ACETAMINOPHEN 325 MG TAB ONE (18:11)
[2021-03-28] MEDS ORDERED: ACETAMINOPHEN 325 MG TAB PO PRN (18:30)
[2021-03-28] MEDS ORDERED: NITROGLYCERIN 0.4 MG SL TAB SL SCH (18:30)
[2021-03-28] MEDS: GABAPENTIN 300 MG CAPSULE PO SCH (20:38)
[2021-03-28] MEDS: METOPROLOL TARTRATE 25 MG TAB PO SCH (20:38)
[2021-03-28] MEDS ORDERED: METOPROLOL TARTRATE 25 MG TAB PO SCH (21:00)
[2021-03-28 23:50] VITALS: BP 147/86
[2021-03-29] MEDS ORDERED: CHLORDIAZEPOXIDE HCL 25 MG CAP PO PRN (00:30)
[2021-03-29] MEDS ORDERED: LORAZEPAM 0.5 MG TABLET PO PRN (00:30)
[2021-03-29 04:00] VITALS: BP 179/95
[2021-03-29 04:45] VITALS: BP 150/78
[2021-03-29] MEDS: PANTOPRAZOLE 40 MG/VIAL IVP SCH (08:26)
[2021-03-29] MEDS: METOPROLOL TARTRATE 25 MG TAB PO SCH (08:29)
[2021-03-29] MEDS: GABAPENTIN 300 MG CAPSULE PO SCH (08:29)
[2021-03-29 08:41] VITALS: BP 151/86
[2021-03-29] MEDS ORDERED: METFORMIN HCL 500 MG TAB.SR.24H PO SCH (09:00)
[2021-03-29] MEDS ORDERED: FUROSEMIDE 20 MG TABLET PO SCH ×2 (09:00)
[2021-03-29] MEDS ORDERED: EMPAGLIFLOZIN 10 MG PO SCH (09:00)
[2021-03-29] MEDS ORDERED: UBIDECARENONE 400 MG PO SCH (09:00)
[2021-03-29] MEDS ORDERED: M.V.I. IV [ADULT] 10 ML, FOLIC ACID 1 MG, THIAMINE HCL 100 MG in 0.9%NACL 1000ML 1,000 ML IV SCH (09:00)
[2021-03-29] MEDS ORDERED: NON-FORMULARY MEDICATION 1 EACH (Potassium Chloride 10 MEQ) PO SCH (09:00)
[2021-03-29] MEDS ORDERED: ASPIRIN 81 MG EC TAB PO SCH (09:00)
[2021-03-29] MEDS ORDERED: PANTOPRAZOLE 40 MG TAB DR PO SCH (09:00)
[2021-03-29] MEDS ORDERED: ASPIRIN 81MG CHEW TAB PO SCH (09:00)
[2021-03-29] MEDS ORDERED: THIAMINE HCL 100 MG/ML 2ML VIAL IVP SCH (09:00)
[2021-03-29] MEDS ORDERED: POTASSIUM CHLORIDE 10MEQ SR TAB PO SCH (09:00)
[2021-03-29] MEDS ORDERED: CHOLECALCIFEROL PO SCH (09:00)
[2021-03-29 11:47] VITALS: BP 172/89
[2021-03-29 12:35] VITALS: BP 107/57
[2021-03-29] MEDS ORDERED: PROPOFOL 10 MG/ML 20ML VIAL IV ONE ×2 (12:40)
[2021-03-29] MEDS ORDERED: LIDOCAINE HCL 1% 20 ML VIAL ONE (12:41)
[2021-03-29 13:40] VITALS: BP 154/73
[2021-04-11] MEDS ORDERED: EVOLOCUMAB 140 MG SQ SCH (09:00)
== END 2021-03-29 14:35 | disposition home or self-care (01) ==
LOC: EDH 00:44 → EDHIP 04:33 → 3BH 23:17
PROVIDERS: ADMIT Internal Medicine Critical Care Medicine; ATTEND Internal Medicine Critical Care Medicine
DX: R07.89 Other chest pain (principal); K29.70 Gastritis, unspecified, without bleeding; R10.13 Epigastric pain; R11.2 Nausea with vomiting, unspecified; K21.9 Gastro-esophageal reflux disease without esophagitis; R13.10 Dysphagia, unspecified; E11.9 Type 2 diabetes mellitus without complications; E78.5 Hyperlipidemia, unspecified; E78.00 Pure hypercholesterolemia, unspecified; I25.110 Atherosclerotic heart disease of native coronary artery with unstable angina pectoris; I11.0 Hypertensive heart disease with heart failure; I50.32 Chronic diastolic (congestive) heart failure; J90 Pleural effusion, not elsewhere classified; E66.9 Obesity, unspecified; Z86.711 Personal history of pulmonary embolism; Z79.82 Long term (current) use of aspirin; Z79.84 Long term (current) use of oral hypoglycemic drugs; Z79.899 Other long term (current) drug therapy; Z95.5 Presence of coronary angioplasty implant and graft; Z87.891 Personal history of nicotine dependence; Z72.89 Other problems related to lifestyle; Z79.02 Long term (current) use of antithrombotics/antiplatelets
CPT/HCPCS: 36415; 43239; 71045; 71250; 80053; 82550 ×3; 83690; 83735; 83874 ×2; 83880; 84484 ×3; 85025; 93005; 96374; 96376; 99285; A4215; A4222; A4223; A4606; A4620; C9113 ×2; G0378 ×32; J2704 ×2; J7030; J3411; J3490

== ENCOUNTER 2021-05-04 09:53 | Observation (INO) | payer MEDICARE ==
[~2021-05-04] VITALS: Ht 185.4 cm; Wt 100.2 kg
[~2021-05-04 09:53] MED LIST changes: +ASPI-1005 PO; +EVOL140S2 SQ; +FURO20TA6 PO; +GABA-533 PO; +METF-526 PO; +METO25TA6 PO; +POTA10CA44 PO; +UBID400C6 PO; +VITAD50000 PO
[2021-05-04 10:40] LABS: APPEARANCE,URINE Cloudy (CLEAR); BILIRUBIN,URINE Negative (NEGATIVE); COLOR,URINE Yellow (YELLOW); GLUCOSE, URINE (UA) Negative (NEGATIVE); KETONES,URINE Negative (NEGATIVE); LEUKOCYTE ESTERASE ,URINE Moderate (NEGATIVE); NITRATE,URINE Positive (NEGATIVE); OCCULT BLOOD,URINE Negative (NEGATIVE); PH,URINE 6.5 (5.0-8.0); PROTEIN,URINE Negative (NEGATIVE)
[2021-05-04 10:43] LABS: INR 1.05 (0.85-1.15); PROTHROMBIN TIME 11.4 SEC (9.6-11.6)
[2021-05-04 10:45] LABS: ALBUMIN 3.3 g/dL (3.5-5.0); ASPARTATE AMINOTRANSFERASE 28 U/L (10-37); BILIRUBIN,TOTAL 0.8 mg/dL (0.2-1.0); CARBON DIOXIDE 24 mmol/L (21-32); CHLORIDE 103 mmol/L (101-111); CREATINE KINASE, TOTAL 99 U/L (21-232); CREATININE 0.8 mg/dL (0.5-1.5); GLOMERULAR FILTR. RATE CALC 101 mL/min (>60); GLUCOSE,RANDOM 133 mg/dL (70-105); POTASSIUM 4.8 mmol/L (3.5-5.1); SODIUM SERUM 137 mmol/L (136-145); TOTAL PROTEIN, SERUM 6.5 g/dL (6.0-8.3); UREA NITROGEN, BLOOD 14 mg/dL (7-18)
[2021-05-04 10:49] LABS: ALANINE AMINOTRANSFERASE < 6 U/L (12-78)
[2021-05-04 11:05] LABS: BACTERIA,URINE Many /HPF (None Seen); RBC,URINE 0-1 /HPF (0-1); SQUAMOUS EPITHELIAL CELL,UR Moderate /HPF (0-2)
[2021-05-04] MEDS: ENOXAPARIN SODIUM 100 MG/1 ML SQ SCH ×2 (11:30→11:38)
[2021-05-04] MEDS ORDERED: CEFTRIAXONE 2GM VIAL IVP ONE (11:30)
[2021-05-04] MEDS ORDERED: NITROGLYCERIN 0.4 MG SL TAB SL PRN (11:30)
[2021-05-04 12:05] LABS: BASOPHILS % (AUTO) 0.5 % (0.0-5.0); EOSINOPHILS % (AUTO) 2.7 % (0.0-8.0); HEMATOCRIT 41.5 % (42-54); LYMPHOCYTES % (AUTO) 20.6 % (21.0-51.0); MEAN CORPUSCULAR HEMOGLOBIN 26.7 pg (27.0-33.0); MEAN CORPUSCULAR VOLUME 83.2 fL (79-99); MONOCYTES % (AUTO) 6.3 % (3.0-13.0); NEUTROPHILS % (AUTO) 69.1 % (40.0-77.0); PLATELET COUNT (AUTO) 241 K/uL (130-400); RED BLOOD CELL COUNT(AUTO) 4.99 MIL/uL (4.50-6.20); RED CELL DISTRIBUTION WIDTH 15.8 % (11.0-15.5); WHITE BLOOD COUNT (AUTO) 7.8 K/uL (4.8-10.8)
[2021-05-04] MEDS ORDERED: ACETAMINOPHEN 325 MG TAB PO PRN (12:30)
[2021-05-04] MEDS ORDERED: MORPHINE 2 MG SYG IVP PRN (12:30)
[2021-05-04] MEDS ORDERED: ACETAMINOPHEN 650 MG SUPPOSITORY RC PRN (12:30)
[2021-05-04] MEDS ORDERED: HYDRALAZINE 20MG/ML VIAL IV PRN (12:30)
[2021-05-04] MEDS ORDERED: ONDANSETRON 4MG INJ IVP PRN (12:30)
[2021-05-04] MEDS ORDERED: DOCUSATE SODIUM 100 MG CAP PO PRN ×2 (12:30)
[2021-05-04] MEDS ORDERED: CLONIDINE HCL 0.1 MG TABLET PO PRN (12:30)
[2021-05-04] MEDS ORDERED: LABETALOL 20MG SYG IV PRN (12:30)
[2021-05-04] MEDS ORDERED: IOHEXOL-350 75 ML VIAL IV ONE (16:08)
[2021-05-04] MEDS: INSULIN HUMULIN R 100 UNIT/ML 3ML SQ SCH ×2 (16:30→21:00)
[2021-05-04] MEDS: 0.9% NACL 250ML IVPB SCH (21:19)
[2021-05-04] MEDS: DOXYCYCLINE 100MG+NS 250ML IV SCH (21:19)
[2021-05-04 22:48] VITALS: BP 172/95
[2021-05-05 00:15] VITALS: BP 146/78
[2021-05-05 04:00] VITALS: BP 149/72
[2021-05-05 04:41] LABS: HEMOGLOBIN A1C 6.5 % (4.0-6.0)
[2021-05-05 05:02] LABS: MAGNESIUM 2.1 mg/dL (1.80-2.40); PHOSPHORUS 3.7 mg/dL (2.5-4.9); POTASSIUM 4.5 mmol/L (3.5-5.1); THYROID STIMULATING HORMONE 1.16 uIU/mL (0.36-3.74)
[2021-05-05] MEDS: INSULIN HUMULIN R 100 UNIT/ML 3ML SQ SCH ×2 (07:30→11:30)
[2021-05-05 08:00] VITALS: BP 149/70
[2021-05-05] MEDS ORDERED: RANOLAZINE 500 MG TAB.SR.12H PO SCH (09:00)
[2021-05-05] MEDS ORDERED: PANTOPRAZOLE 40 MG TAB DR PO SCH (09:00)
[2021-05-05] MEDS ORDERED: FOLIC ACID 1 MG TABLET PO SCH (09:00)
[2021-05-05] MEDS ORDERED: THIAMINE HCL 100 MG TABLET PO SCH (09:00)
[2021-05-05] MEDS ORDERED: ASPIRIN 81MG CHEW TAB PO SCH (09:00)
[2021-05-05] MEDS ORDERED: METOPROLOL TARTRATE 25 MG TAB PO SCH (09:00)
[2021-05-05] MEDS: DOXYCYCLINE 100MG+NS 250ML IV SCH (09:51)
[2021-05-05] MEDS: 0.9% NACL 250ML IVPB SCH (10:03)
[2021-05-05] MEDS ORDERED: CEFTRIAXONE 2GM VIAL IVPB SCH (11:00)
[2021-05-05] MEDS ORDERED: CEFD300C3 PO (11:35)
[2021-05-05 12:00] VITALS: BP 116/80
== END 2021-05-05 15:15 | disposition home or self-care (01) ==
LOC: EDH 09:53 → EDHIP 12:06 → 3DH 22:37
PROVIDERS: ADMIT Internal Medicine Critical Care Medicine; ATTEND Internal Medicine Critical Care Medicine
DX: R07.89 Other chest pain (principal); J18.9 Pneumonia, unspecified organism; N39.0 Urinary tract infection, site not specified; I10 Essential (primary) hypertension; I25.110 Atherosclerotic heart disease of native coronary artery with unstable angina pectoris; E11.9 Type 2 diabetes mellitus without complications; E78.00 Pure hypercholesterolemia, unspecified; E78.5 Hyperlipidemia, unspecified; Z79.02 Long term (current) use of antithrombotics/antiplatelets; Z79.82 Long term (current) use of aspirin; Z79.84 Long term (current) use of oral hypoglycemic drugs; Z79.899 Other long term (current) drug therapy; Z87.891 Personal history of nicotine dependence; Z95.1 Presence of aortocoronary bypass graft
CPT/HCPCS: 36415 ×2; 71045; 71275; 80048; 80053; 81001; 82550; 83036; 83735; 83880; 84100; 84145; 84443; 84484 ×4; 85025; 85378; 85610; 87077; 87088; 87186; 93005; 96365; 96366; 96375; 96376; 99291; G0378 ×27; J0696 ×2; J1650; J3490 ×2; J7050; Q9967